=== PATIENT | female | born 1960 | race Caucasian/White ===

== ENCOUNTER 2019-06-02 09:05 | Outpatient (CLI) | payer OTHER, SELFPAY ==
[2019-06-02 09:20] LABS: Basophils Absolute Auto 0.03 K/mm3 (0.00-0.10); Basophils Percent Auto 0.4 % (0.0-1.0); Eosinophils Absolute Auto 0.24 K/mm3 (0.02-0.50); Eosinophils Percent Auto 2.9 % (1.0-6.0); Hematocrit 44.1 % (35.0-49.0); Hemoglobin 15.3 g/dL (12.0-15.0); Immature Granulocyte Absolute 0.03 K/mm3 (0.00-0.00); Immature Granulocyte Percent A 0.4 % (0.0-0.0); Lymphocytes Absolute Auto 2.46 K/mm3 (1.10-4.50); Lymphocytes Percent Auto 30.2 % (18.0-42.0); Mean Corpuscular HGB Conc 34.7 g/dL (32.0-36.0); Mean Corpuscular Hemoglobin 31.9 pg (27.0-31.0); Mean Corpuscular Volume 91.9 fL (78.0-102.0); Mean Platelet Volume 9.2 fl (9.2-11.8); Monocytes Absolute Auto 0.53 K/mm3 (0.10-0.90); Monocytes Percent Auto 6.5 % (2.0-11.0); Neutrophils Absolute Auto 4.9 K/mm3 (1.7-7.2); Neutrophils Percent Auto 59.6 % (50.0-70.0); Platelet Count Result 343 K/mm3 (150-420); Red Cell Distribution Width 12.7 % (11.6-14.4); White Blood Count 8.1 K/mm3 (4.8-10.8)
[2019-06-02 09:20] LABS: Add Urine Microscopic? YES; Appearance Urine Clear (Clear); Bilirubin Urine Negative (Negative); Blood Urine 1+ (Negative); Color Urine Yellow (Yellow); Glucose Urine UA Negative (Negative); Ketones Urine Negative (Negative); Leukocyte Esterase Ur 1+ (Negative); Nitrate Urine Negative (Negative); Protein Urine Negative (Negative); Specific Grav Ur 1.025 (1.010-1.020); Urobilinogen Urine 0.2 mg/dL (0.2-1.0)
[2019-06-02 09:27] LABS: RBC Urine 0-2 /hpf (0-2)
[2019-06-02 09:28] LABS: Bacteria Urine 1+ /hpf; Squamous Epithelial Cell Urine Few /hpf (Few); Transitional Epi Cells Urine Few /hpf; WBC Urine 0-3 /hpf (0-3)
[2019-06-02 09:34] LABS: Hemoglobin A1C 5.8 % (<5.7)
[2019-06-02 10:50] LABS: Anion Gap 13.4 mmol/L (7-16); Blood Urea Nitrogen 20 mg/dL (7-18); Calcium 9.5 mg/dL (8.5-10.1); Carbon Dioxide 30 mmol/L (21-32); Chloride 104 mmol/L (98-108); Estimated Glomerular Filt Rate 56; Free T4 Free Thyroxine 0.92 ng/dL (0.76-1.46); Glucose 104 mg/dL (70-99); Osmolality Calculated 298 mOsm/kg (285-295); Potassium 4.4 mmol/L (3.5-5.1); Sodium 143 mmol/L (136-145)
[2019-06-06 09:23] LABS: Vitamin D 25 Hydroxy 27 ng/mL (30-100)
== END 2019-06-02 09:06 | disposition home or self-care (01) ==
PROVIDERS: PCP Internal Medicine; Visit Provider Internal Medicine
DX: R73.01 Impaired fasting glucose (principal); I10 Essential (primary) hypertension; E55.9 Vitamin D deficiency, unspecified; Z00.00 Encounter for general adult medical examination without abnormal findings
CPT/HCPCS: 36415; 80048; 81001; 82306; 83036; 84439; 84443; 85025

== ENCOUNTER 2020-08-26 12:21 | Outpatient (CLI) | payer OTHER, SELFPAY ==
--- NOTE | ~2020-08-26 | MM_ITS ---
EXAMINATION: MM screening janelle BI w kaylene HISTORY: Screening mammogram, family history of breast cancer in her mother. TECHNIQUE: Craniocaudal and mediolateral oblique 3-D tomosynthesis images were obtained and synthetic 2-D images were generated. CAD analysis was submitted and interpreted. COMPARISON: 10/13/2018, 09/19/2017, 09/17/2016, 05/09/2015 BREAST PARENCHYMAL COMPOSITION: The breasts are heterogeneously dense, which may obscure small masses . FINDINGS: Bilateral obscured breast masses are seen which demonstrate decrease in size, consistent wi th benign findings. There is no evidence of suspicious mass, calcification, or architectural distorti on to suggest malignancy in either breast. There has been no suspicious interval change. IMPRESSION: 1. No mammographic evidence of malignancy. 2. Recommend routine screening mammography in one year. BI-RADS Category 2: Benign finding(s). Reviewed, dictated and finalized at location A.
== END 2020-08-26 12:22 | disposition home or self-care (01) ==
LOC: CHSIMG 12:23
PROVIDERS: PCP Internal Medicine; Visit Provider Obstetrics & Gynecology
DX: Z12.31 Encounter for screening mammogram for malignant neoplasm of breast (principal)
CPT/HCPCS: 77063; 77067

== ENCOUNTER 2021-10-01 11:57 | Outpatient (CLI) | payer OTHER, SELFPAY ==
--- NOTE | ~2021-10-01 | DEXA_ITS ---
Bone Density Report Name: GRACIE LEE Age: 61 Sex: Female Ethnicity: White Date of : 1960 Indication: postmenopausal; screening for osteoporosis; height loss; hysterectomy; Referring Provider: Rylan Sandoval Study: Bone densitometry was performed. Exam Date: October 01, 2021 Accession number: [id number] Bone Density: Region BMD T-score Z-score Classification AP Spine(L1-L4) 1.060 0.1 1.5 Normal Femoral Neck (Left) 0.727 -1.1 0.1 Osteopenia Total Hip (Left) 1.034 0.8 1.6 Normal Femoral Neck (Right) 0.816 -0.3 0.9 Normal Total Hip (Right) 1.029 0.7 1.6 Normal Femoral Neck Mean 0.771 -0.7 0.5 Normal Total Hip Mean 1.032 0.7 1.6 Normal World Health Organization criteria for BMD impression classify patients as: Normal (T-score at or above -1.0), Osteopenia (T-score between -1.0 and -2.5), or Osteoporosis (T-score at or below -2.5). 10-year Fracture Risk(1): Major Osteoporotic Fracture 6.5% Hip Fracture 0.4% Reported Risk Factors: [place] (), Neck BMD=0.727, BMI=34.0 (1) FRAX(R) Version 3.08. Fracture probability calculated for an untreated patient. Fracture probability may be lower if the patient has received treatment. Clinical Information Provided by Patient: Has used the following medications: Vitamin D, multi vitimain Has the following medical conditions: Hysterectomy Patient maximum height was 64 Menopause Age: 50 No regular weight bearing exercise Drinks caffeinated beverages Onset of menses at age 14 Number of children 2 Impression: The patient has low bone mass, based on the Left Femoral Neck T-score. Discussion: BONE DENSITY IS LOW AT ONE OR MORE SKELETAL SITES. This patient's lowest T-score is low at one or more skeletal sites. It meets the World Health Organization's (WHO) criteria for ?low bone mass? (T-score between -1.0 and -2.5). The patient's 10-year risk of fracture as calculated by FRAX is less than the threshold where pharmacological therapy is recommended by the National Osteoporosis Foundation (NOF). However, all treatment decisions require clinical judgment and consideration of individual patient factors, including patient preferences, comorbidities, previous drug use, risk factors not captured in the FRAX model (e.g., frailty, falls, vitamin D deficiency, increased bone turnover, interval significant decline in bone density) and possible under or overestimation of fracture risk by FRAX. The patient should follow a healthful lifestyle (good nutrition with adequate calcium and vitamin D, and appropriate weight-bearing exercise). Follow-Up: Consider repeating this study in 2 to 3 years to reassess this patient's status, or sooner if there is some new clinical indication. Reported by: Dr. Ryley Plata on
--- NOTE | ~2021-10-01 | MM_ITS ---
EXAMINATION: MM screening janelle BI w kaylene HISTORY: Screening TECHNIQUE: Craniocaudal and mediolateral oblique 3-D tomosynthesis images were obtained and synthetic 2-D images were generated. CAD analysis was submitted and interpreted. COMPARISON: Comparison to multiple prior studies sequentially, with oldest reviewed study dated 09/2014. BREAST PARENCHYMAL COMPOSITION: The breasts are heterogenously dense, which may obscure small masses FINDINGS: Bilateral breast masses have progressed slightly decreased in size, consistent with benign masses. There is no evidence of suspicious mass, calcification, or architectural distortion to sugges t malignancy in either breast. There has been no suspicious interval change. IMPRESSION: 1. No mammographic evidence of malignancy. 2. Recommend routine screening mammography in one year. BI-RADS Category 2: Benign finding(s). Reviewed, dictated and finalized at location A.
== END 2021-10-01 11:58 | disposition home or self-care (01) ==
LOC: CHSIMG 11:59
PROVIDERS: PCP Internal Medicine; Visit Provider Obstetrics & Gynecology
DX: Z78.0 Asymptomatic menopausal state (principal); Z12.31 Encounter for screening mammogram for malignant neoplasm of breast
CPT/HCPCS: 77063; 77067; 77080

== ENCOUNTER 2022-10-08 13:21 | Outpatient (CLI) | payer OTHER, SELFPAY ==
--- NOTE | ~2022-10-08 | MM_ITS ---
EXAMINATION: MM screening janelle BI w kaylene HISTORY: Screening mammogram TECHNIQUE: Craniocaudal and mediolateral oblique 3-D tomosynthesis images were obtained and synthetic 2-D images were generated. CAD analysis was submitted and interpreted. COMPARISON: 10/06/20152021, 08/26/2020 bilateral screening mammogram examinations BREAST PARENCHYMAL COMPOSITION: The breasts are heterogeneously dense, which may obscure small masses . FINDINGS: There are bilateral mammographic asymmetries and possible masses. Bilateral diagnostic mamm ography and breast ultrasound examination are recommended. IMPRESSION: 1. Bilateral mammographic asymmetries and possible breast masses 2. Bilateral diagnostic mammogram and breast ultrasound examination are recommended BI-RADS Category 0: Incomplete: Needs additional imaging evaluation. Reviewed, dictated and finalized at location A. IMPRESSION: 1. Bilateral mammographic asymmetries and possible breast masses 2. Bilateral diagnostic mammogram and breast ultrasound examination are recomme nded BI-RADS Category 0: Incomplete: Needs additional imaging evaluation.
== END 2022-10-08 13:22 | disposition home or self-care (01) ==
LOC: CHSIMG 13:23
PROVIDERS: PCP Internal Medicine; Visit Provider Obstetrics & Gynecology
DX: Z12.31 Encounter for screening mammogram for malignant neoplasm of breast (principal); R92.8 Other abnormal and inconclusive findings on diagnostic imaging of breast
CPT/HCPCS: 77063; 77067

== ENCOUNTER 2022-10-18 08:55 | Outpatient (CLI) | payer OTHER, SELFPAY ==
--- NOTE | ~2022-10-18 | MM_ITS ---
EXAMINATION: MM diagnostic janelle BI w kaylene HISTORY: Bilateral breast masses and asymmetries on screening mammogram TECHNIQUE: Additional 3-D tomosynthesis images of the breasts were performed and synthetic 2-D images were generated. CAD analysis was submitted and interpreted. COMPARISON: 10/08/2022, 10/01/2021, 08/26/2020, 09/19/2017 FINDINGS: There are bilateral, similar appearing, waxing and waning breast masses. No suspicious mass , calcification, or architectural distortion are identified. IMPRESSION: 1. No mammographic evidence of malignancy. 2. Recommend routine screening mammography in one year. BI-RADS Category 2: Benign finding(s). Reviewed, dictated and finalized at location A.
== END 2022-10-18 08:56 | disposition home or self-care (01) ==
LOC: CHSIMG 08:57
PROVIDERS: PCP Internal Medicine; Visit Provider Obstetrics & Gynecology
DX: R92.8 Other abnormal and inconclusive findings on diagnostic imaging of breast (principal)
CPT/HCPCS: 77062; 77066; G0279

== ENCOUNTER 2023-11-22 12:10 | Outpatient (CLI) | payer OTHER, SELFPAY ==
--- NOTE | ~2023-11-22 | MM_ITS ---
EXAMINATION: MM screening [facility] BI w kaylene HISTORY: Screening TECHNIQUE: Craniocaudal and mediolateral oblique 3-D tomosynthesis images were obtained and synthetic 2-D images were generated. CAD analysis was submitted and interpreted. COMPARISON: Comparison to multiple prior studies sequentially, with oldest reviewed study dated 05/2016. BREAST PARENCHYMAL COMPOSITION: Not dense: There are scattered areas of fibroglandular density. FINDINGS: There are multiple masses of both breasts which are partially obscured by fibroglandular co ntent. Most masses appear significantly decreased in size over time dating back to 09/17/2016. No reagan picious new calcifications, masses or architectural distortion are identified in either breast to sug gest malignancy. IMPRESSION: 1. No mammographic evidence of malignancy. 2. Recommend routine screening mammography in one year. BI-RADS Category 2: Benign finding(s). Reviewed, dictated and finalized at location B.
--- NOTE | ~2023-11-22 | DEXA_ITS ---
Bone Density Report Name: GRACIE LEE Age: 63 Sex: Female Ethnicity: White Date of : 1960 Indication: postmenopausal; screening for osteoporosis; height loss; hysterectomy; Referring Provider: PREETI IRBY Study: Bone densitometry was performed. Exam Date: November 22, 2023 Accession number: [id number] Bone Density: Region BMD T-score Z-score Classification AP Spine(L1-L4) 1.058 0.1 1.6 Normal Femoral Neck (Left) 0.819 -0.3 1.1 Normal Total Hip (Left) 1.080 1.1 2.1 Normal Femoral Neck (Right) 0.853 0.0 1.4 Normal Total Hip (Right) 1.056 0.9 1.9 Normal Femoral Neck Mean 0.836 -0.1 1.2 Normal Total Hip Mean 1.068 1.0 2.0 Normal World Health Organization criteria for BMD impression classify patients as: Normal (T-score at or above -1.0), Osteopenia (T-score between -1.0 and -2.5), or Osteoporosis (T-score at or below -2.5). 10-year Fracture Risk: FRAX not reported because: All T-scores for Spine Total, Hip Total, Femoral Neck at or above -1.0 Previous Exams: Region Exam Age BMD T-score BMD Change BMD Change Date g/cm2 vs Baseline vs Previous AP Spine (L1-L4) 11/22/2023 63 1.058 0.1 -0.001 (-0.1%) -0.001 (-0.1%) 10/01/2021 61 1.060 0.1 Total Hip(Left) 11/22/2023 63 1.080 1.1 0.045 (4.4%)# 0.045 (4.4%)# 10/01/2021 61 1.034 0.8 Total Hip(Right) 11/22/2023 63 1.056 0.9 0.027 (2.6%)# 0.027 (2.6%)# 10/01/2021 61 1.029 0.7 *Denotes significance at 95% confidence level, LSC for AP Spine = 0.022 g/cm2, LSC for Total Hip = 0.027 g/cm2 # Denotes dissimilar scan types or analysis methods Clinical Information Provided by Patient: Has used the following medications: Vitamin D, multi vitimain Has the following medical conditions: Hysterectomy Patient maximum height was 64 Menopause Age: 52 No regular weight bearing exercise Drinks caffeinated beverages Onset of menses at age 14 Number of children 2 Impression: The patient has normal bone mass. No significant bone loss was observed. Discussion: BONE DENSITY IS ABOVE THE MINIMUM DESIRABLE LEVEL AT ALL SKELETAL SITES TESTED. This patient?s bone mineral density is above the minimum desirable level (T-score -1.0 or better) at all sites measured. The patient should follow a healthful lifestyle (good nutrition with adequate calcium and vitamin D, and appropriate weight-bearing exercise). Follow-Up: Consider repeating this
== END 2023-11-22 12:11 | disposition home or self-care (01) ==
LOC: CHSIMG 12:12
PROVIDERS: PCP Internal Medicine; Visit Provider Nurse Practitioner Obstetrics & Gynecology
DX: Z12.31 Encounter for screening mammogram for malignant neoplasm of breast (principal); Z78.0 Asymptomatic menopausal state
CPT/HCPCS: 77063; 77067; 77080

== ENCOUNTER 2024-04-14 07:55 | Outpatient (CLI) | payer OTHER, SELFPAY ==
[2024-04-14 08:18] LABS: Basophils Absolute Auto 0.07 K/mm3 (0.00-0.10); Basophils Percent Auto 0.8 % (0.0-1.0); Eosinophils Absolute Auto 0.24 K/mm3 (0.02-0.50); Eosinophils Percent Auto 2.9 % (1.0-6.0); Hematocrit 43.5 % (35.0-49.0); Hemoglobin 14.8 g/dL (12.0-15.0); Immature Granulocyte Absolute 0.04 K/mm3 (0.00-0.00); Immature Granulocyte Percent A 0.5 % (0.0-0.0); Lymphocytes Absolute Auto 2.22 K/mm3 (1.10-4.50); Lymphocytes Percent Auto 26.7 % (18.0-42.0); Mean Corpuscular Hemoglobin 31.2 pg (27.0-31.0); Mean Corpuscular Volume 91.8 fL (78.0-102.0); Monocytes Absolute Auto 0.45 K/mm3 (0.10-0.90); Monocytes Percent Auto 5.4 % (2.0-11.0); Neutrophils Absolute Auto 5.31 K/mm3 (1.70-7.20); Neutrophils Percent Auto 63.7 % (50.0-70.0); Platelet Count Result 344 K/mm3 (150-420); Red Blood Count 4.74 M/mm3 (4.20-5.40); Red Cell Distribution Width 12.3 % (11.6-14.4); White Blood Count 8.3 K/mm3 (4.8-10.8)
[2024-04-14 08:30] LABS: Hemoglobin A1C 5.5 % (<5.7)
[2024-04-14 08:55] LABS: Thyroid Stimulating Hormone Reflex 0.96 u/IU/mL (0.36-3.74)
[2024-04-14 09:13] LABS: Alanine Aminotransferase 27 U/L (14-59); Albumin Level 3.8 g/dL (3.4-5.0); Alkaline Phosphatase 110 U/L (46-116); Anion Gap 9 mmol/L (4-12); Aspartate Amino Transferase 12 U/L (15-37); Bilirubin,Total 0.4 mg/dL (0.00-1.00); Blood Urea Nitrogen 13 mg/dL (7-18); Calcium 8.9 mg/dL (8.5-10.1); Carbon Dioxide 28 mmol/L (21-32); Chloride 106 mmol/L (98-108); Cholesterol 204 mg/dL (0-200); Estimated Glomerular Filt Rate 59; Glucose 121 mg/dL (70-99); HDL Direct 56 mg/dL (40-60); LDL Cholesterol Calculated 126 mg/dL (<130); Osmolality Calculated 297 mOsm/kg (285-295); Potassium 4.4 mmol/L (3.5-5.1); Sodium 143 mmol/L (136-145); Total Protein 6.6 g/dL (6.4-8.2); Triglycerides 109 mg/dL (0-150)
[2024-04-16 14:09] LABS: Vitamin D 25 Hydroxy 23 ng/mL (30-100)
== END 2024-04-14 07:56 | disposition home or self-care (01) ==
LOC: CHSLAB 07:56
PROVIDERS: PCP Nurse Practitioner Family; Visit Provider Nurse Practitioner Family
DX: Z00.00 Encounter for general adult medical examination without abnormal findings (principal); E55.9 Vitamin D deficiency, unspecified
CPT/HCPCS: 36415; 80053; 80061; 82306; 83036; 84443; 85025

== ENCOUNTER 2024-05-02 16:06 | Outpatient (CLI) | payer OTHER, SELFPAY ==
--- NOTE | ~2024-05-02 | XR_ITS ---
XR foot LT min 3V Ordering provider: See Wetzel DPM History: . Bunion on R L Clovere . Comparison: None. FINDINGS: BONES: No acute fracture or dislocation. , Is seen in the meningeal toe. Mild hallux valgus cannot be excluded. JOINT SPACES: Normal. No tarsal coalition. SOFT TISSUES: Normal. Calcaneus spur. IMPRESSION: No acute osseous abnormality left foot. Reviewed, dictated and finalized at location A. GATION SUPPORT ANALYST
--- NOTE | ~2024-05-02 | XR_ITS ---
XR foot RT min 3V Ordering provider: See Wetzel DPM History: . Bunion on R Daniel Tatum . Comparison: None. FINDINGS: BONES: No acute fracture or dislocation. Calcaneal spur. JOINT SPACES: Normal. No tarsal coalition. SOFT TISSUES: Normal. IMPRESSION: No acute osseous abnormality of the right foot. Reviewed, dictated and finalized at location A. HOUSE DRIVER
== END 2024-05-02 16:07 | disposition home or self-care (01) ==
PROVIDERS: PCP Nurse Practitioner Family; Visit Provider Podiatrist Foot & Ankle Surgery
DX: M21.611 Bunion of right foot (principal); M21.612 Bunion of left foot
CPT/HCPCS: 73630

== ENCOUNTER 2024-07-03 11:46 | Outpatient (CLI) | payer OTHER, SELFPAY ==
--- NOTE | ~2024-07-03 | XR_ITS ---
Left foot Technique: AP, oblique, and lateral views were obtained. Clinical History: Postoperative COMPARISON: 05/02/2024 Findings: Status post percutaneous orthopedic pinning of the second and third toes, with pins transfi ramiro the distal and proximal interphalangeal joints of these digits. Orthopedic screw also present tr ansfixing a first metatarsal osteotomy.. Joint spaces are preserved without erosive or degenerative c hange. Soft tissues are unremarkable. Impression: Postoperative changes, as detailed above. Reviewed, dictated and finalized at location M. Impression: Postoperative changes, as detailed above.
--- OUTSIDE RECORDS SUMMARY | 2024-07-03 13:23 | XMS_ITS | Patient Health Record ---
Author Organization [facility] Address [address] [place], [place] [id number] Care Team Providers Care Business Programmer Name Role Phone JORGE ALBERTO LANDEROS Unavailable [phone] Ephraim Pimentel Unavailable Unavailable VINNY SHIRLEY Unavailable [phone] Allergies No Known Allergies Reason For Referral No Information Medications Medication SIG (Take, Route, Frequency, Duration) Notes Start Date End Date Status HYDROcodone-Acetaminophen 5-325 MG 1 tablet as needed Orally every 4-6 hrs 06/14/2024 Active Multivitamin - 1 tablet Orally Once a day Active Vitamin B 12 100 MCG as directed Orally Active Vitamin D 50 MCG (1999) 1 tablet Oral ly Once a day Active Vital Signs Height-cm 160.02 cm 12/15/2023 Height 63 in 12/15/2023 Encounters Encounter Location Date Provider Diagnosis [facility] [address] [place], [place] [id number] 06/15/2024 JORGE ALBERTO LANDEROS [facility] [address] [place], [place] [id number] 06/21/2024 JORGE ALBERTO LANDEROS Hallux valgus (acquired), left foot M20.12 ; Other hammer toe(s) (acquired), left foot M20.42 and Encounter for other specified surgical aftercare Z48.89 [facility] [address] [place], [place] [id number] 12/15/2023 VINNY SHIRLEY Unspecified atherosclerosis of [place] arteries of extremities, bilateral legs I70.203 ; Other hammer toe(s) (acquired), right foot M20.41 ; Other hammer toe(s) (acquired), left foot M20.42 ; Hallux valgus (acquired), right foot M20.11 and Hallux valgus (acquired), left foot M20.12 [facility] [address] [place], [place] [id number] 05/03/2024 JORGE ALBERTO LANDEROS Hallux valgus (acquired), left foot M20.12 ; Other hammer toe(s) (acquired), left foot M20.42 and Left foot pain M79.672 [facility] [place] [address] [facility] [address] [place] [id number] 06/14/2024 JORGE ALBERTO LANDEROS Assessments Encounter Date Diagnosis (ICD Code) Assessment Notes Treatment Notes Treatment Clinical Notes Section Notes 12/15/2023 Unspecified atherosclerosis of [place] arteries of extremities, bilateral legs (ICD-10 - I70.203) Patient educated on risks and aggravating factors of PVD, including conservative treatment options such as a diet and exercise regimen to aid in slowing progression of vascular disease 12/15/2023 Other hammer toe(s) (acquired), right foot (ICD-10 - M20.41) The patient was educated regarding how to mechanically stabilize their deformity. The patient was given education about shoe recommendations specific for the condition. The patient was educated about custom orthotics and how appropriate shoes and orthotics can prevent further worsening of the deformity. The patient was educated about how bad shoe habits can worsen the condition. NSAIDS, P.T., injections and other conservative treatments were discussed. Both surgical and non surgical treatments were discussed, but conservative options were emphasized. 05/03/2024 Hallux valgus (acquired), left foot (ICD-10 - M20.12) Bunion: Discussed various treatments with the patient regarding hallux abducto valgus deformity. Discussed conservative care consisting of padding, wider shoes, anti-inflammatorie s, and orthotics. Discussed surgical treatment options and answered all questions about the intra-operative and post-operative treatment course. 05/03/2024 Other hammer toe(s) (acquired), left foot (ICD-10 - M20.42) Hammertoe Deformity: Discussed various treatments for hammer toes with the patient . Discussed conservative care consisting of padding, wider shoes, anti-inflammatorie s, and orthotics. Discussed surgical treatment options and answered all questions about the intra-operative and post-operative treatment course. 06/21/2024 Hallux valgus (acquired), left foot (ICD-10 - M20.12) 06/21/2024 Other hammer toe(s) (acquired), left foot (ICD-10 - M20.42) 06/21/2024 Encounter for other specified surgical aftercare (ICD-10 - Z48.89) 05/03/2024 Left foot pain (ICD-10 - M79.672) 12/15/2023 Other hammer toe(s) (acquired), left foot (ICD-10 - M20.42) 12/15/2023 Hallux valgus (acquired), right foot (ICD-10 - M20.11) 12/15/2023 Hallux valgus (acquired), left foot (ICD-10 - M20.12) Discussed bunion deformity to left foot. Discussed appropriate shoe gear as well as medical grade orthotics to prevent the progression of the deformity. Discussed joint mobilization techniques. Surgical intervention is not warranted at this time. 06/21/2024 Other Dressing Change: The old dressing was removed. Utilizing aseptic technique, a new sterile compression dressing was applied. Patient was instructed to keep it dry and not remove it. Continue post-operative restrictions. Keep foot and dressing dry. Wear surgical shoe at all times when bearing weight. Decrease activity. Order: Xrays 3 views of the left foot at [facility] 05/03/2024 Other Surgical Consent The patient understands there are no guarantees. There is a chance of: 1. Infection 2. Failure or rejection of implant 3. Overcorrection 4. Undercorrection 5. Non resolution of the problem 6. Transfer lesions to adjacent metatarsals 7. Return of the problem 8. Numbness 9. Anesthetic reaction 10. Healing problems or blood clot 11. Additional or revisional surgery may be required if complications occur The patient had no further question and has agreed to undergo surgical correction of the admitting diagnosis. Patient has signed the written consent form at this time. Proposed procedures: Kvng bunionectomy with hardware of the left foot, hammertoe correction of left 2nd digit with hardware, hammertoe correction of the left 3rd digit with hardware. Plan Of Treatment Next Appt Details Provider Name:JORGE ALBERTO LANDEROS, 11:20:00 AM, [address] [place] [address], [phone], Insurance Providers Payer Name Payer Address Payer Phone Subscriber Number Group Number Insured Name Patient Relationship to Insured Coverage Start Date Coverage End Date [employer] [facility] [address] [address] [place], [place] [id number] GRACIE LEE Self - patient is the insured
--- OUTSIDE RECORDS SUMMARY | 2024-07-03 13:23 | XMS_ITS ---
Author Organization [facility] Address [address] [place], [place] [id number] Care Team Providers Care Core Shaper Name Role Phone JORGE ALBERTO LANDEROS Unavailable [phone] Ephraim Pimentel Unavailable Unavailable Medications Medication SIG (Take, Route, Frequency, Duration) Notes Start Date End Date Status HYDROcodone-Acetaminophen 5-325 MG 1 tablet as needed Orally every 4-6 hrs 06/14/2024 Active Encounters Encounter Location Date Provider Diagnosis [facility] [address] [facility] [address] [place], [place] [phone] 06/14/2024 JORGE ALBERTO LANDEROS Plan Of Treatment Medication Medication Name Sig Start Date Stop Date Notes HYDROcodone-Acetaminophen 5- 325 MG 1 tablet as needed Orally every 4-6 hrs 06/14/2024 Next Appt Details Provider Name:JORGE ALBERTO LANDEROS, 11:20:00 AM, [address] [place] [address], [phone], Progress Notes * CELINA LEEHDOB: [birth year] (63 yo F)Acc No.[id number]:06/14/2024 Patient: Stephanie MACKGILMER GRACIE :1960 A ge:63 Y S ex:Female Address: [place], [address] * Refills Start HYDROcodone-Acetaminophen Tablet, 5-325 MG, Orally, 30, 1 tablet as needed, every 4-6 hrs, Refills=0 * true * Date: Generated for Edvin crystal/Silvia/Michela on: 0 07/03/2024 01:23 PM CDT
--- OUTSIDE RECORDS SUMMARY | 2024-07-03 13:23 | XMS_ITS | Clinical Summary ---
Author Organization [facility] Address [address] [place] [address] Care Team Providers Care Experimental Technician Name Role Phone David Philippe PA Primary Care Provider [phone] Allergies No known active allergies Medications Vitamin D3 (VITAMIN D) 50 mcg tablet Take 1 tablet (50 mcg total) by mouth daily. Active Cyanocobalamin (B-12) 50 MCG Tab Take 1 tablet by mouth daily. Active Multiple Vitamin (MULTIVITAMIN ADULT OR) Take 1 tablet by mouth daily. Active aspirin 81 MG chewable tablet Chew 1 tablet (81 mg total) by mouth daily. Active lisinopril (PRINIVIL) 10 MG tablet Take 1 tablet (10 mg total) by mouth daily. Started 06/11/24 for 1 week then increase to 20 MG Active HYDROcodone-lisbeth taminophen (NORCO) 5-325 MG tablet Take 1 tablet by mouth every 4 (four) hours as needed. 06/14/2024 Active Active Problems No known active problems Encounters Date Type Department Care Team Description 06/15/2024 10:23 AM STRATEGY ANALYST Anesthesia [place] [address] Jatin Parish MD Jackson, Samantha Rae, FNP 06/15/2024 9:13 AM STRATEGY ANALYST - 06/15/2024 10:56 AM STRATEGY ANALYST Surgery [place] [address] See Wetzel DPM [place] BUNIONECTOMY WITH HARDWARE LEFT FOOT/ ARTHROPLASTY 2ND AND 3RD TOES WITH HARDWARE LEFT FOOT 06/15/2024 5:25 AM STRATEGY ANALYST - 06/15/2024 1:40 PM STRATEGY ANALYST Hospital Encounter [facility] [place] [address] [place], See, DPM Discharge Disposition: Home or Self Care (Routine Discharge) 06/15/2024 Travel 06/08/2024 Travel from Last 3 Months Social History Tobacco Use Types Packs/Day Years Used Date Smoking Tobacco: Never Smokeless Tobacco: Never Tobacco Cessation:Counseling Given: Not Answered Alcohol Use Standard Drinks/Week Comments Yes 0 (1 standard drink = 0.6 oz pur e alcohol) social Comments No Sex and Gender Information Value Date Recorded Sex Assigned at Female 06/15/2024 5:22 AM STRATEGY ANALYST Legal Sex Female 10:51 AM STRATEGY ANALYST Gender Identity Not on file Sexual Orientation Not on file Last Filed Vital Signs Vital Sign Reading Time Taken Comments Blood Pressure 130/85 06/15/2024 1:15 PM STRATEGY ANALYST Pulse 64 06/15/2024 1:15 PM STRATEGY ANALYST Temperature 35.9 C (96.6 F) 06/15/2024 1:15 PM STRATEGY ANALYST Respiratory Rate 16 06/15/2024 1:15 PM STRATEGY ANALYST Oxygen Saturation 98% 06/15/2024 1:15 PM STRATEGY ANALYST Inhaled Oxygen Concentration - - Weight 89.2 kg (196 lb 10.4 oz) 06/15/2024 6:30 AM STRATEGY ANALYST Height 160 cm (5' 3 ) 06/15/2024 6:30 AM STRATEGY ANALYST Body Mass Index 34.84 06/15/2024 6:30 AM STRATEGY ANALYST Plan of Treatment Health Maintenance Due Date Last Done Comments Colorectal Cancer Screening Colonoscopy (10 Years) 1962 Annual Physical 1965 Hepatitis C 1980 Mammogram Screening 2002 Zoster Vaccines (1 of 2) 2012 COVID-19 Vaccine (2 - 2023-2 5 season) 2023 11/05/2020 DTaP, Tdap and Td Vaccines ( 3 - Td or Tdap) 01/13/2034 01/14/2024, 11/21/2012 RSV Immunization or 60+ Years (1 - 1-dose 75+ series) 2037 Influenza Adult Completed 01/17/2024 Meningococcal B Vaccine Aged Out No l onger eligible based on patient's age to complete this topic Meningococcal Vaccine Aged Out No babs stan eligible based on patient's age to complete this topic Pneumococcal Vaccine: Pediatrics (0 to 5 Years) and At-Risk Patients (6 to 64 Years) Aged Out No longer eligible b ased on patient's age to complete this topic RSV Immunizations Under 20 Months Aged Out No longer eligible b ased on patient's age to complete this topic Medical Devices Implanted Type Area Government Clerk Device Identifier Shelf Expiration Date Model / Serial / Lot 3.8 Counter Sink Implanted:Qty : 1 on 06/15/2024 by See Wetzel DPM at [facility] Screw Left: Foot [employer] [id number] / / 3.0x16 Mm Asnis Screw Implanted:Qty : 1 on 06/15/2024 by See Wetzel DPM at [facility] Screw Left: Foot [employer] [id number] / / Toetac Xpress Implanted:Qty : 2 on 06/15/2024 by See Wetzel DPM at [facility] Left: Foot [employer] [id number] 02/14/2027 -[id number] / / [id number] Explanted Type Area Government Clerk Device Identifier Shelf Expiration Date Model / Serial / Lot 1.2 K-Wire Explanted:Qty: 1 on 06/15/2024 by See Wetzel DPM at [facility] Wire Left: Foot [employer] [id number] / / Procedures Procedure Name Priority Date/Time Associated Diagnosis Comments CORRECT BUNION,METATARSAL OSTEOTOMY 06/15/2024 10:23 AM STRATEGY ANALYST HALLUX VALGUS Case Notes SCHED BY FAX ON 05/09/24 MAURI PHONE ASSESS Special Needs ALEXA ASNIS MICRO SCREW/ TOE TACS from Last [address] [facility] Care Teams Experimental Technician Relationship Specialty Start Date End Date David Philippe FNP [address] [place] [phone] PCP - General Nurse Practitioner Family 06/08/24
--- OUTSIDE RECORDS SUMMARY | 2024-07-03 13:23 | XMS_ITS ---
Author Organization [facility] Address [address] [place], [place] [id number] Care Team Providers Care Channeling Machine Operator Name Role Phone JORGE ALBERTO LANDEROS Unavailable [phone] Ephraim Pimentel Unavailable Unavailable REASON FOR VISIT [facility] SURGERY Encounters Encounter Location Date Provider Diagnosis [address] [phone] 06/15/2024 JORGE ALBERTO LANDEROS Plan Of Treatment Next Appt Details Provider Name:JROGE ALBERTOCORINNE RODRÍGUEZBALJessica, 11:20:00 AM, [address] [place] [address], [phone], Progress Notes * CELINA LEEHDOB: [birth year] (63 yo F)Acc No.[id number]:06/15/2024 Patient: Stephanie GRACIE ORTIZ Provider: Thierry Landeros DPM :1960 A ge:63 Y S ex:Female Date:06/15/2024 Address: [facility] [place], [place] * Billing Information: * Visit Code: * Procedure Codes: * Electronic signature of JORGE ALBERTO LANDEROS DPM on 07/03/2024 at 01:23 PM CDT Sign off status: Pending * Provider: Thierry Landeros DPM Date: 0 06/15/2024 Generated for Edvin crystal/Silvia/Michela on: 0 07/03/2024 01:23 PM CDT
--- OUTSIDE RECORDS SUMMARY | 2024-07-03 13:24 | XMS_ITS | Referral Summary ---
Author Organization [facility] Address [address] [place] [address] Care Team Providers Care Radiation Therapy Technician Name Role Phone Aura Nelson MD Primary Care Provider [phone] Allergies No known active allergies Medications lisinopril-hydr oCHLOROthiazide (ZESTORETIC) 10-12.5 mg per tablet Take 1 tablet by mouth nightly 05/21/2019 Active cholecalciferol (VITAMIN D-3) 2000 unit capsule Take 1 capsule (2,000 Units total) by mouth nightly Active multivitamin capsule Take 1 capsule by mouth daily Active oxyCODONE (ROXICODONE) 5 mg immediate release tabletIndicatio ns:Pain Take 1 tablet (5 mg total) by mouth every 4 (four) hours as needed for pain 15 tablet 08/28/2020 Active polyethylene glycol (MIRALAX) 17 gram packetIndicatio ns:constipation Take 1 packet (17 g total) by mouth daily 30 each 08/28/2020 Active polyethylene glycol (MIRALAX) 17 gram packetIndicatio ns:constipation Take 1 packet (17 g total) by mouth daily 30 packet 11 02/14/2023 Active Active Problems Problem Noted Date Diagnosed Date History of colonic polyps 02/14/2023 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 Overview (07/23/2020): Added automatically from request for surgery [id number] Stress incontinence 07/23/2020 Overview (08/13/2020): Added automatically from request for surgery [id number] Colon cancer screening 01/15/2020 Overview (02/29/2020): Added automatically from request for surgery [id number] 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 AUDIT-C Answer Date Recorded Q1: How often do you have a drink containing alc ohol? Never 04/01/2023 Average Number of Drinks Not on file 023 Frequency of Binge Drinking Not on file 03/18 Personal Safety Answer Date Recorded Have you ever been in or are you currently in a harmful physical or emotional relationship or is someone making you feel afraid or unsafe? Denies 04/01/2023 Comments No Sex and Gender Information Value Date Recorded Sex Assigned at Not on file Legal Sex Female 2:55 AM CORPORATE REPRESENTATIVE Gender Identity Not on file Sexual Orientation Not on file Last Filed Vital Signs Vital Sign Reading Time Taken Comments Blood Pressure 156/90 04/01/2023 2:25 PM CORPORATE REPRESENTATIVE Pulse 67 04/01/2023 2:25 PM CORPORATE REPRESENTATIVE Temperature 36.3 C (97.3 F) 04/01/2023 2:10 PM CORPORATE REPRESENTATIVE Respiratory Rate 25 04/01/2023 2:25 PM CORPORATE REPRESENTATIVE Oxygen Saturation 100% 04/01/2023 2:25 PM CORPORATE REPRESENTATIVE Inhaled Oxygen Concentration - - Weight 83.9 kg (185 lb) 04/01/2023 11:42 AM CORPORATE REPRESENTATIVE Height 160 cm (5' 3 ) 04/01/2023 11:42 AM CORPORATE REPRESENTATIVE Body Mass Index 32.77 04/01/2023 11:42 AM CORPORATE REPRESENTATIVE Plan of Treatment Not on file Medical Devices Implanted Type Area Stamp Analyst Device Identifier Shelf Expiration Date Model / Serial / Lot [employer] [id number] [id number] Solyx Advantage 9cm Incision Sling Delivery Device Mesh - [id number] Implanted:Qty: 1 on 08/28/2020 by Yamileth Gil MD at [facility] N/A: Urethra [employer] [facility] 12/05/2022 [id number] / / [id number] Description:Suburethral impl ant Procedures Procedure Name Priority Date/Time Associated Diagnosis Comments COLONOSCOPY 04/01/2023 1:16 PM CORPORATE REPRESENTATIVE from Last 3 Months or Most Recently Relevant to Health Maintenance Results * COLONOSCOPY (04/01/2023 1:16 PM CORPORATE REPRESENTATIVE) Anatomical Region Laterality Modality Other Narrative Procedure Note Marek Mack MD - 04/01/2023 1:16 PM CST ENDOSCOPY LAB Patient Name: Lulu Torres Procedure Date: 04/01/2023 1:16 PM Date of : 1960 Admit Type: Outpatient Age: 62 Gender: Female Attending MD: Marek Mack M.D. 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 Last colonoscopy 02/2022 with one 2 mm polyp (colonic mucosa) - BBPS 6. Providers: Marek Mack M.D. Referring MD: Yuan Whitten M.D., Aura Nelson MD Medicines: Monitored Anesthesia Care Complications: No immediate complications. Estimated Blood Loss: Estimated blood loss: none. Procedure: Pre-Anesthesia Assessment: - Prior to the procedure, a History and Physicalwas performed, and patient medications, allergies and sensitivities were reviewed. The patient'stolerance of previous anesthesia was reviewed. - The risks and benefits of the procedure and the sedation options and risks were discussed with the patient. All questions were answered and informed consent was obtained. - Immediately prior to administration ofmedications, the patient was re-assessed for adequacy to receive sedatives. The benefits, risks and alternatives of theprocedure and sedation were discussed and informed consentwas obtained. All questions were answered. Please referto the signed informed consent document in the medical record. The scope was passed under direct vision.The [id number] was introduced through the anusand advanced to the terminal ileum, with identificationof the appendiceal orifice and IC valve. Thecolonoscopy was performed without difficulty. The patient tolerated the procedure well. The quality of thebowel preparation was evaluated using the BBPS (BostonBowel Preparation Scale) with scores of: Right Colon = 3, Transverse Colon = 3 and Left Colon = 3 (entiremucosa seen well with no residual staining, smallfragments of stool or opaque liquid). The total BBPS score equals 9. Findings: The perianal and digital rectal examinations were normal. The terminal ileum appeared normal. Many small-mouthed diverticula were found in the sigmoid colon and descending colon. One inverted diverticulum with superficialerosion. Non-bleeding external hemorrhoids were found during retroflexion. The hemorrhoids were medium-sized. Retroflexion in the right colon was performed. Impression: - The examined portion of the ileum was normal. - Diverticulosis in the sigmoid colon and in the descending colon. One inverted diverticulum with superficial erosion likely related to bowel prep. - Non-bleeding external hemorrhoids. - No specimens collected. Recommendation: - Return patient to [facility] for [facility]. - Resume previous diet. - Continue present medications. - Repeat colonoscopy for screening purposesMSH6-Skinner Syndrome in 2 years. - Consider repeat upper endoscopy for screening purposes. This can coordinated with primary care provider. - Return to primary care provider. - In the unusual situation that you developabdominal pain, bleeding or other significant problems in the days following this procedure please call my office [phone]). After hours and eveningsplease call [phone] and speak to the GI fellow idalia. Please tell the fellow that Dr. Mack didyour procedure and that you were instructed to have the fellow call me or the physician covering for me to discuss the management of your condition. If youhave an urgent problem, please go to the nearestemergency room and have the ER doctor call my office duringthe day or the GI fellow after hours and weekends to arrange admission or transfer to our facility.Please bring this report with you if you go to theemergency room. Attending Participation: I was present and participated during the entire procedure, including non-stern portions. Electronically signed by Marek Mack MD Marek Mack M.D. 04/01/2023 2:01:57 PM Number of Addenda: 0 Note Initiated On: 04/01/2023 1:16 PM Marek Mack MD ENDOSCOPY PROCED URES Final Result from Last 3 Months or Most Recently Relevant to Health Maintenance Insurance [facility] [address] [facility] [address] Advance Directives For more information, please contact: [phone] * Full Code (Latest Code Status on File) Date Activated Date Inactivated Comments 03/02/2022 8:33 AM 03/02/2022 3:05 PM * Full Code Date Activated Date Inactivated Comments 08/28/2020 1:49 PM 08/28/2020 7:42 PM * Full Code Date Activated Date Inactivated Comments 03/03/2020 9:28 AM 03/03/2020 3:41 PM Care Teams Radiation Therapy Technician Relationship Specialty Start Date End Date Aura Nelson MD [address] [place] [address] PCP - General Internal Medicine 05/31/19
--- OUTSIDE RECORDS SUMMARY | 2024-07-03 13:24 | XMS_ITS ---
Author Organization [facility] Address [address] [place], [place] [address] Care Team Providers Care Human Resources Officer Name Role Phone TIGRE JORGE ALBERTO Unavailable [phone] Ephraim Pimentel Unavailable Unavailable REASON FOR VISIT The patient returns 1 week s/p Kvng bunionectomy and 2nd and 3rd hammertoe repair. She has taken half of her pain medication and it is getting less painful now Medications Medication SIG (Take, Route, Frequency, Duration) Notes Start Date End Date Status HYDROcodone-Acetaminophen 5-325 MG 1 tablet as needed Orally every 4-6 hrs 06/14/2024 Active Multivitamin - 1 tablet Orally Once a day Active Vitamin B 12 100 MCG as directed Orally Active Vitamin D 50 MCG (1999 UT) 1 tablet Oral ly Once a day Active Encounters Encounter Location Date Provider Diagnosis [address] [id number] 06/21/2024 JORGE ALBERTO LANDEROS Hallux valgus (acquired), left foot M20.12 ; Other hammer toe(s) (acquired), left foot M20.42 and Encounter for other specified surgical aftercare Z48.89 Assessments Encounter Date Diagnosis (ICD Code) Assessment Notes Treatment Notes Treatment Clinical Notes Section Notes 06/21/2024 Hallux valgus (acquired), left foot (ICD-10 - M20.12) 06/21/2024 Other hammer toe(s) (acquired), left foot (ICD-10 - M20.42) 06/21/2024 Encounter for other specified surgical aftercare (ICD-10 - Z48.89) 06/21/2024 Other Dressing Change: The old dressing was removed. Utilizing aseptic technique, a new sterile compression dressing was applied. Patient was instructed to keep it dry and not remove it. Continue post-operative restrictions. Keep foot and dressing dry. Wear surgical shoe at all times when bearing weight. Decrease activity. Order: Xrays 3 views of the left foot at [facility] Plan Of Treatment Treatment Notes Assessment Notes Other Dressing Change: The old dressing was removed. Utilizing aseptic technique, a new sterile compression dressing was applied. Patient was instructed to keep it dry and not remove it. Continue post-operative restrictions. Keep foot and dressing dry. Wear surgical shoe at all times when bearing weight. Decrease activity. Order: Xrays 3 views of the left foot at [facility] Next Appt Details Provider Name:JORGE ALBERTO LANDEROS, 11:20:00 AM, [address] [place] [address], [phone], Progress Notes * DAVID LEEOB: [birth year] (63 yo F)Acc No.[id number]:06/21/2024 Patient: GRACIE LAZAR Provider: Thierry Landeros DPM :1960 A ge:63 Y S ex:Female Date:06/21/2024 Address[facility] Subjective: * Chief Complaints: * 1 . The patient returns 1 week s/p Kvng bunionectomy and 2nd and 3rd hammertoe repair. She has taken half of her pain medication and it is getting less painful now. * HPI: H PI: Follow Up Visit P atient presents for follow-up visit for left foot post op. Patient states that she is doing ok, she is not having any pain with the k-wires. She states that she has been cautious with the foot and has not bumped it. She states that her left 4th and 5th digit have been sore due to being compressed against each other in the wrapping. , MA: agustina. * Medical History: * Medications: T aking Vitamin D 50 MCG (2000 UT) Tablet 1 tablet Orally Once a day , Taking Vitamin B 12 100 MCG Lozenge as directed Orally , Taking Multivitamin - Tablet 1 tablet Orally Once a day , Taking HYDROcodone-Acetaminophen 5-325 MG Tablet 1 tablet as needed Orally every 4-6 hrs , Medication List reviewed and reconciled with the patient Objective: * Vitals: * Examination: D ermatologic: Skin findings: T he dressing is clean and dry. Sutures are in place. No erythema, calor, active drainage, or dehiscence noted. V ascular: Post Op E richard is consistent for post-operative treatment course. N eurologic: Gross sensation G ross sensation is intact to light touch.? M usculoskeletal: Post Op N o calf pain noted. Assessment: * Assessment: 1. H allux valgus (acquired), left foot - M20.12 (Primary) 2 . O ther hammer toe(s) (acquired), left foot - M20.42 3 . E ncounter for other specified surgical aftercare - Z48.89 Plan: * Treatment: * Procedure Codes: 9 9024 POSTOP FOLLOW-UP VISIT * Billing Information: * Visit Code: * Procedure Codes: 03988 POSTOP FOLLOW-UP VISIT. * Electronic signature of JORGE ALBERTO LANDEROS DPM on 07/03/2024 at 01:23 PM CDT Sign off status: Pending * Provider: Thierry Landeros DPM Date: 06/21/2024 Generated for Edvin crystal/Silvia/Kemitting on: 07/03/2024 01:23 PM CDT History and Physical Notes * HPI (History of Present Illness) Category Sub-Category Detail Notes Category Not es HPI Follow Up Visit Patient presents for follow-up visit for left foot post op. Patient states that she is doing ok, she is not having any pain with the k-wires. She states that she has been cautious with the foot and has not bumped it. She states that her left 4th and 5th digit have been sore due to being compressed against each other in the wrapping. , MA: mca Examination Category Sub-Category Detail Notes Category Not es Dermatologic Skin findings: The dressing is clean and dry. Sutures are in place. No erythema, calor, active drainage, or dehiscence noted Neurologic Gross sensation Gross sensation is intact to light touch Vascular Post Op Edema is consist ent for post-operative treatment course Musculoskeletal Post Op No calf pain noted
--- OUTSIDE RECORDS SUMMARY | 2024-07-03 13:24 | XMS_ITS | Clinical Summary ---
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 Essential hypertension 05/31/2019 Mass of breast 01/22/2009 Surgical History Surgery Date Site/Laterality Comments HYSTERECTOMY 04/18/2007 - 04/17/2008 BILATERAL SALPINGOOPHORECTOMY 04/18/2020 - 04/17/2021 midurethral sling Medical History Medical History Date Comments Hypertension Skinner syndrome Family History Medical History Relation Name Comments Hypertension Father Liver cancer Father Lung cancer Father Diabetes Maternal Grandfather Diabetes Maternal Grandmother Lung cancer Maternal Grandmother Breast cancer Mother Diabetes Mother Bone cancer Paternal Grandmother Breast cancer Paternal Grandmother Stomach cancer Paternal Grandmother Relation Name Status Comments Father Maternal Grandfather Maternal Grandmother Mother Paternal Grandmother Social History Tobacco Use Types Packs/Day Years [...] on file Legal Sex Female 2:55 AM MEDIA SALES REPRESENTATIVE Gender Identity Not on file Sexual Orientation Not on file Obstetrics History Para Term AB IAB SAB Ectopic Multiple Livin g Live Births 3 2 2 1 1 2 2 Date Outcome GA Total Labor Labor/2nd/3rd Weight Sex Type Anes PTL Debora A1 A5 Name Clin Term Vag-S pont Living Term Vag-S pont Living SAB Demise Last Filed Vital Signs Vital Sign Reading Time Taken Comments Blood Pressure 156/90 04/01/2023 2:25 PM MEDIA SALES REPRESENTATIVE Pulse 67 04/01/2023 2:25 PM MEDIA SALES REPRESENTATIVE Temperature 36.3 C (97.3 F) 04/01/2023 2:10 PM MEDIA SALES REPRESENTATIVE Respiratory Rate 25 04/01/2023 2:25 PM MEDIA SALES REPRESENTATIVE Oxygen Saturation 100% 04/01/2023 2:25 PM MEDIA SALES REPRESENTATIVE Inhaled Oxygen Concentration - - Weight 83.9 kg (185 lb) 04/01/2023 11:42 AM MEDIA SALES REPRESENTATIVE Height 160 cm (5' 3 ) 04/01/2023 11:42 AM MEDIA SALES REPRESENTATIVE Body Mass Index 32.77 04/01/2023 11:42 AM MEDIA SALES REPRESENTATIVE Plan of Treatment Health Maintenance Due Date Last Done Comments Breast Cancer Screening-Mammogram 1960 Depression Screening 1960 Hepatitis C Screening 1960 Hepatitis B Screening 1980 Regular Well Visit/Exam 18-64 1980 Zoster Vaccine (1 of 2) 2012 DTaP/Tdap/Td Vaccine (2 - Td or Tdap) 11/21/2022 11/21/2012 Influenza Vaccine (#1) 2023 Colon Cancer Screening-Colonoscopy 04/01/2033 04/01/2023, 03/02/2022, 03/03/2020 Colon Cancer Screening-CT Colonography Discontinued 04/01/2023, 03/02/2022, 03/03/2020 Colon Cancer Screening-DNA Stool Discontinued 04/01/2023, 03/02/2022, 03/03/2020 Colon Cancer Screening-FIT Discontinued 04/01, 03/02/2022, 03/03/2020 Colon Cancer Screening-Sigmoidoscopy Discontinued 04/01/2023, 03/02/2022, 03/03/2020 Pneumococcal vaccine <65 Aged Out No longer eligible based on patient's age to complete this topic Medical Devices Implanted Type Area Business Administrator Device Identifier Shelf Expiration Date Model / Serial / Lot [employer] Julianne [id number] Solyx Advantage 9cm Incision Sling Delivery Device Mesh - [id number] Implanted:Qty: 1 on 08/28/2020 by Yamileth Gil MD at [facility] N/A: Urethra [employer] Julianne 12/05/2022 [id number] / / [id number] Description:Suburethral impl ant Procedures Procedure Name Priority Date/Time Associated Diagnosis Comments COLONOSCOPY 04/01/2023 1:16 PM MEDIA SALES REPRESENTATIVE from Last 3 Months or Most Recently Relevant to Health Maintenance Results * COLONOSCOPY (04/01/2023 1:16 PM MEDIA SALES REPRESENTATIVE) Anatomical Region Laterality Modality Other Narrative Procedure Note Marek Mack MD - 04/01/2023 1:16 PM CST ENDOSCOPY LAB Patient Name: Lulu Torres Procedure Date: 04/01/2023 1:16 PM Date of : 1960 Admit Type: Outpatient Age: 62 Gender: Female Attending MD: Marek Mack M.D. Room: [facility] ENDOSCOPY ROOM 02 Note Status: Finalized [...] The scope was passed under direct vision.The [id number] was introduced through the anusand advanced to [...] following this procedure please call my office [phone] After hours and eveningsplease call [phone] and speak to the GI fellow oncall. Please tell the fellow that Dr. Mack [...] 0 Note Initiated On: 04/01/2023 1:16 PM Maerk Mack MD ENDOSCOPY PROCED URES Final Result from Last 3 Months or Most Recently Relevant to Health Maintenance Insurance [facility] H[facility]/PPO Address: [facility] [address] [address] [place] [address] [facility] HMO/PPO Address[address] [place] [id number] [facility] H[facility]/PPO Address: [address] [address] Advance Directives For more information, please contact: [phone] * Full Code (Latest Code Status on File) Date Activated Date Inactivated Comments 03/02/2022 8:33 AM 03/02/2022 3:05 PM * Full Code Date Activated Date Inactivated Comments 08/28/2020 1:49 PM 08/28/2020 7:42 PM * Full Code Date Activated Date Inactivated Comments 03/03/2020 9:28 AM 03/03/2020 3:41 PM Care Teams Freight Car Builder Relationship Specialty Start Date End Date Aura Nelson MD [address] [place] [address] PCP - General Internal Medicine 05/31/19
== END 2024-07-03 11:47 | disposition home or self-care (01) ==
PROVIDERS: PCP Nurse Practitioner Family; Visit Provider Podiatrist Foot & Ankle Surgery
DX: Z98.890 Other specified postprocedural states (principal)
CPT/HCPCS: 73630

== ENCOUNTER 2024-09-22 07:09 | Outpatient (CLI) | payer OTHER, SELFPAY ==
--- OUTSIDE RECORDS SUMMARY | 2024-09-22 07:12 | XMS_ITS ---
Author Organization [facility] Address [address] [place], [place] [id number] Care Team Providers Care Electrician Powerhouse Name Role Phone JORGE ALBERTO LANDEROS Unavailable [phone] Ephraim Pimentel Unavailable Unavailable REASON FOR VISIT The patient reports that the celebrex is tolerated well and has helped with the swelling of her left foot following bunion and hammertoe surgery. The great toe is fine, but the 2nd and 3rd toes are still puffy Medications Medication SIG (Take, Route, Frequency, Duration) Notes Start Date End Date Status Vitamin B 12 100 MCG as directed Orally Active Vitamin D 50 MCG (1999) 1 tablet Oral ly Once a day Active Celecoxib 200 MG 1 capsule as needed Orally Once a day for 30 days Active HYDROcodone-Acetaminophen 5-325 MG 1 tablet as needed Orally every 4-6 hrs 06/14/2024 Active Multivitamin - 1 tablet Orally Once a day Active Encounters Encounter Location Date Provider Diagnosis [facility] [address] [place], [place] [id number] 08/20/2024 JORGE ALBERTO LANDEROS Hallux valgus (acquired), left foot M20.12 ; Other hammer toe(s) (acquired), left foot M20.42 ; Encounter for other specified surgical aftercare Z48.89 and Left foot pain M79.672 Assessments Encounter Date Diagnosis (ICD Code) Assessment Notes Treatment Notes Treatment Clinical Notes Section Notes 08/20/2024 Hallux valgus (acquired), left foot (ICD-10 - M20.12) Surgical Restriction Release: Patient may resume normal bathing. Return to normal shoes. Gradual return to activities as tolerated. Patient instructed to contact the office if any issues arise. 08/20/2024 Other hammer toe(s) (acquired), left foot (ICD-10 - M20.42) 08/20/2024 Encounter for other specified surgical aftercare (ICD-10 - Z48.89) 08/20/2024 Left foot pain (ICD-10 - M79.672) Plan Of Treatment Medication Medication Name Sig Start Date Stop Date Notes Celecoxib 200 MG 1 capsule as needed Orally Once a day for 30 days Treatment Notes Assessment Notes Hallux valgus (acquired), left foot Surgical Restriction Release: Patient may resume normal bathing. Return to normal shoes. Gradual return to activities as tolerated. Patient instructed to contact the office if any issues arise. Next Appt Details Follow Up: 3 Months, Reason: Post op bunion and hammertoe follow-up Provider Name:JORGE ALBERTO LANDEROS, 04:10:00 PM, [address], [address], [phone], Progress Notes * BRANDIGILMER CELINAHDOB: [birth year] (64 yo F)Acc No.[id number]:08/20/2024 Patient: GRACIE LAZAR Provider: Thierry Landeros DPM :1960 A ge:63 Y S ex:Female Date:08/20/2024 Address:[address] [place] [address] Subjective: * Chief Complaints: * 1 . The patient reports that the celebrex is tolerated well and has helped with the swelling of her left foot following bunion and hammertoe surgery. The great toe is fine, but the 2nd and 3rd toes are still puffy. * HPI: H PI: Follow Up Visit P atient presents for follow up visit for post op., Patient states their problem is, improving. She still has swelling. Patient returned to shoes with no issues. The celebrex helps with pain if she happens to overdo it other than that no issues., MA: cecilio. * ROS: G eneral / Constitutional: Patient denies c hills, fever, weakness, night sweats. M usculoskeletal: Patient denies c hildhood foot problems, weakness. P atient complains of j oint pain, bunions, hammertoes. P eripheral Vascular: Patient denies u lceration of feet, cold extremities. ? S kin: Patient denies u lcerations, discoloration. ? N eurologic: Patient denies b alance difficulty, confusion, difficulty speaking, dizziness. * Medical History: * Social History: S ocial drinker. * Medications: T aking Vitamin D 50 MCG (1999 [place]) Tablet 1 tablet Orally Once a day , Taking Vitamin B 12 100 MCG Lozenge as directed Orally , Taking Multivitamin - Tablet 1 tablet Orally Once a day , Taking HYDROcodone-Acetaminophen 5-325 MG Tablet 1 tablet as needed Orally every 4-6 hrs , Taking Celecoxib 200 MG Capsule 1 capsule as needed Orally Once a day , stop date 08/22/2024, Medication List reviewed and reconciled with the patient Objective: * Vitals: * Examination: C onstitutional: Constitutional T he patient is awake, alert, well developed, well groomed and well nourished. D ermatologic: Skin findings: S kin is warm, dry, supple with no breaks in the skin. V ascular: Dorsalis pedis pulse: 2 /4, bilateral. Posterior tibial pulse: 2 /4, bilateral. Capillary refill: l ess than 3 seconds. Edema: l ocalized edema to the left 2nd and 3rd digits.? N eurologic: Gross sensation G ross sensation is intact to light touch.? M usculoskeletal: Muscle Strength M uscle strength is 5/5 in regards to dorsiflexion, plantarflexion, inversion, and eversion in bilateral lower extremities. ? Assessment: * Assessment: 1. H allux valgus (acquired), left foot - M20.12 (Primary) 2 . O ther hammer toe(s) (acquired), left foot - M20.42 3 . E ncounter for other specified surgical aftercare - Z48.89 4 . L eft foot pain - M79.672 Plan: * Treatment: * Procedure Codes: 9 9024 POSTOP FOLLOW-UP VISIT * Follow Up: 3 Months (Reason: Post op bunion and hammertoe follow-up) * Billing Information: * Visit Code: * Procedure Codes: 52386 POSTOP FOLLOW-UP VISIT. * Electronic signature of JORGE ALBERTO LANDEROS DPM on 09/22/2024 at 07:12 AM CDT Sign off status: Pending * Provider: Thierry Landeros DPM Date: 0 08/20/2024 Generated for Edvin crystal/Silvia/Michela on: 0 09/22/2024 07:12 AM CDT History and Physical Notes * HPI (History of Present Illness) Category Sub-Category Detail Notes Category Not es HPI Follow Up Visit Patient presents for follow up visit for post op., Patient states their problem is, improving. She still has swelling. Patient returned to shoes with no issues. The celebrex helps with pain if she happens to overdo it other than that no issues., MA: mf Examination Category Sub-Category Detail Notes Category Not es Dermatologic Skin findings: Skin is warm, dr y, supple with no breaks in the skin Neurologic Gross sensation Gross sensation is intact to light touch Vascular Dorsalis pedis pulse: 2/4, bilateral Edema: localized edema to t he left 2nd and 3rd digits Capillary refill: less than 3 seconds Posterior tibial pulse: 2/4, bilateral Musculoskeletal Muscle Strength Muscle strength is 5/5 in regards to dorsiflexion, plantarflexion, inversion, and eversion in bilateral lower extremities Constitutional Constitutional The patient is a wake, alert, well developed, well groomed and well nourished
--- OUTSIDE RECORDS SUMMARY | 2024-09-22 07:13 | XMS_ITS ---
Author Organization [facility] Address [address] [place], [place] [id number] Care Team Providers Care Track Laying Machine Operator Name Role Phone TERRANCEJessica JORGE ALBERTO Unavailable [phone] Ephraim Pimentel Unavailable Unavailable Allergies No Known Allergies REASON FOR VISIT The patient returns 5 weeks s/p Bunionectomy and hammertoe correction. She is having some swelling in her toes that is annoying and throbbing Medications Medication SIG (Take, Route, Frequency, Duration) Notes Start Date End Date Status Multivitamin - 1 tablet Orally Once a day Active HYDROcodone-Acetaminophen 5-325 MG 1 tablet as needed Orally every 4-6 hrs 06/14/2024 Active Celecoxib 200 MG 1 capsule as needed Orally Once a day for 30 days 07/23/2024 08/22/2024 Active Vitamin D 50 MCG (1999) 1 tablet Oral ly Once a day Active Vitamin B 12 100 MCG as directed Orally Active Vital Signs Height 63 in 07/23/2024 Height-cm 160.02 cm 07/23/2024 Encounters Encounter Location Date Provider Diagnosis [facility] [address] [place], [place] [id number] 07/23/2024 JORGE ALBERTO LANDEROS Hallux valgus (acquired), left foot M20.12 ; Other hammer toe(s) (acquired), left foot M20.42 ; Encounter for other specified surgical aftercare Z48.89 and Left foot pain M79.672 Assessments Encounter Date Diagnosis (ICD Code) Assessment Notes Treatment Notes Treatment Clinical Notes Section Notes 07/23/2024 Hallux valgus (acquired), left foot (ICD-10 - M20.12) Surgical Restriction Release: Patient may resume normal bathing. Return to normal shoes. Gradual return to activities as tolerated. Patient instructed to contact the office if any issues arise. 07/23/2024 Other hammer toe(s) (acquired), left foot (ICD-10 - M20.42) 07/23/2024 Encounter for other specified surgical aftercare (ICD-10 - Z48.89) 07/23/2024 Left foot pain (ICD-10 - M79.672) Plan Of Treatment Medication Medication Name Sig Start Date Stop Date Notes Celecoxib 200 MG 1 capsule as needed Orally Once a day for 30 days 07/23/2024 08/22/2024 Treatment Notes Assessment Notes Hallux valgus (acquired), left foot Surgical Restriction Release: Patient may resume normal bathing. Return to normal shoes. Gradual return to activities as tolerated. Patient instructed to contact the office if any issues arise. Next Appt Details Follow Up: 4 Weeks, Reason: See how celebrex, toe sleeves, and return to shoes helped swelling Provider Name:JORGE ALBERTO LANDEROS, 04:10:00 PM, [address], [address], [phone], Progress Notes * DAVID LEEOB: [birth year] (64 yo F)Acc No.[id number]:07/23/2024 Patient: GRACIE LAZAR Provider: Thierry Landeros DPM :1960 A ge:63 Y S ex:Female Date:07/23/2024 Address:[facility] [place] [address] Subjective: * Chief Complaints: * 1 . The patient returns 5 weeks s/p Bunionectomy and hammertoe correction. She is having some swelling in her toes that is annoying and throbbing. * HPI: H PI: [facility] for post-operative visit of the left foot. Patient states she has had a lot of pressure in her #3 digit that has been bothering her. Patient state she also has a lot of swelling and redness in #2 and #3 toes. MA LB. * ROS: G eneral / Constitutional: Patient [...] confusion, difficulty speaking, dizziness. * Medical History: M edical History Verified. * Family History: N o Family History documented.. * Social History: S ocial drinker. * [...] List reviewed and reconciled with the patient * Allergies: N .K.D.A. Objective: * Vitals: S hoe Size: 9, Ht: 63 in, Ht-cm: 160.02 cm. * Examination: C onstitutional: Constitutional T he [...] and eversion in bilateral lower extremities. ? R adiographs: Left Foot X rays reveal good correction of the deformities and position of the osteotomies. All hardware is in good position. Xray Order T est Requested: 3 Views Weightbearing (AP, LAT, Oblique) Foot, left. Assessment: * Assessment: 1. H allux valgus (acquired), left foot - M20.12 (Primary) 2 . O ther hammer toe(s) (acquired), left foot - M20.42 3 . E ncounter for other specified surgical aftercare - Z48.89 4 . L eft foot pain - M79.672 Plan: * Treatment: * Immunizations: Immunization record has been reviewed and updated. * Procedure Codes: 9 9024 POSTOP FOLLOW-UP VISIT, 64787 X-RAY EXAM OF FOOT, Modifiers: LT * Follow Up: 4 Weeks (Reason: See how celebrex, toe sleeves, and return to shoes helped swelling) * Billing Information: * Visit Code: * Procedure Codes: 00564 POSTOP FOLLOW-UP VISIT. 48186 X-RAY EXAM OF FOOT. Modifiers: LT * Electronic signature of JORGE ALBERTO LANDEROS DPM on 09/22/2024 at 07:12 AM CDT Sign off status: Pending * Provider: Thierry Landeros DPM Date: 0 07/23/2024 Generated for Edvin crystal/Silvia/Michela on: 0 09/22/2024 07:12 AM CDT History and Physical Notes * HPI (History of Present Illness) Category Sub-Category Detail Notes Category Not es HPI Follow Up Visit Patient presents for follow-up visit for post-operative visit of the left foot. Patient states she has had a lot of pressure in her #3 digit that has been bothering her. Patient state she also has a lot of swelling and redness in #2 and #3 toes. MA LB Examination Category Sub-Category Detail Notes Category Not [...] well developed, well groomed and well nourished Radiographs Left Foot Xrays reveal goo d correction of the deformities and position of the osteotomies. All hardware is in good position Xray Order Test Requested: 3 Vi ews Weightbearing (AP, LAT, Oblique) Foot, left
--- OUTSIDE RECORDS SUMMARY | 2024-09-22 07:13 | XMS_ITS ---
Author Organization [facility] Address [address] [place], [place] [id number] Care Team Providers Care Monkey Trainer Name Role Phone TIGRE JORGE ALBERTO Unavailable [phone] Ephraim Pimentel Unavailable Unavailable REASON FOR VISIT Patient returns 3 weeks s/p Kvng bunionectomy and hammertoe surgery. She is doing well with no issues Medications Medication SIG (Take, Route, Frequency, Duration) Notes Start Date End Date Status Multivitamin - 1 tablet Orally Once a day Active HYDROcodone-Acetaminophen 5-325 MG 1 tablet as needed Orally every 4-6 hrs 06/14/2024 Active Vitamin B 12 100 MCG as directed Orally Active Vitamin D 50 MCG (1999) 1 tablet Oral ly Once a day Active Encounters Encounter Location Date Provider Diagnosis [address] [phone] 07/05/2024 JORGE ALBERTO LANDEROS Hallux valgus (acquired), left foot M20.12 ; Other hammer toe(s) (acquired), left foot M20.42 and Encounter for other specified surgical aftercare Z48.89 Assessments Encounter Date Diagnosis (ICD Code) Assessment Notes Treatment Notes Treatment Clinical Notes Section Notes 07/05/2024 Hallux valgus (acquired), left foot (ICD-10 - M20.12) 07/05/2024 Other hammer toe(s) (acquired), left foot (ICD-10 - M20.42) 07/05/2024 Encounter for other specified surgical aftercare (ICD-10 - Z48.89) 07/05/2024 Other Suture Removal: The sutures were removed. K-Wire Removal: Utilizing standard aseptic technique, the percutaneous K-wire was removed without incident. Surgical Post Operative Visit: Continue post-operative restrictions. Patient may resume normal bathing. Wear surgical shoe at all times when bearing weight. Decrease activity. Plan Of Treatment Treatment Notes Assessment Notes Other Suture Removal: The sutures were removed. K-Wire Removal: Utilizing standard aseptic technique, the percutaneous K-wire was removed without incident. Surgical Post Operative Visit: Continue post-operative restrictions. Patient may resume normal bathing. Wear surgical shoe at all times when bearing weight. Decrease activity. Next Appt Details Follow Up: 2 Weeks, Reason: Xrays 3 views of the left foot. Anticipate progression to regular shoes Provider Name:JORGE ALBERTO LANDEROS, 04:10:00 PM, [address], [address], [phone], Progress Notes * CELINA LEEHDOB: [birth year] (64 yo F)Acc No.[id number]:07/05/2024 Patient: GRACIE LAZAR Provider: Thierry Landeros DPM :1960 A ge:63 Y S ex:Female Date:07/05/2024 Address:[address] [place] [address] Subjective: * Chief Complaints: * 1 . Patient returns 3 weeks s/p Kvng bunionectomy and hammertoe surgery. She is doing well with no issues. * HPI: H [facility]. Patient states that Tuesday the foot was painful and if she wasn't at work she would have taken a painkiller. She states that she took an Ibuprofen when she got home that evening and the foot was better overnight. Other than that she has only been getting twinges a couple of times thought out the day. , MA: agustina. * Medical History: * Social History: S ocial drinker. * Medications: T aking Vitamin D 50 MCG (1999) Tablet 1 tablet Orally Once a day [...] 9024 POSTOP FOLLOW-UP VISIT * Follow Up: 2 Weeks (Reason: Xrays 3 views of the left foot. Anticipate progression to regular shoes) * Billing Information: * Visit Code: * Procedure Codes: 37877 POSTOP FOLLOW-UP VISIT. * Electronic signature of JORGE ALBERTO LANDEROS DPM on 09/22/2024 at 07:13 AM CDT Sign off status: Pending * Provider: Thierry Landeros DPM Date: 0 07/05/2024 Generated for Edvin crystal/Silvia/Michela on: 0 09/22/2024 07:13 AM CDT History and Physical Notes * HPI (History of Present Illness) Category Sub-Category Detail Notes Category Not es HPI Follow Up Visit Patient presents for follow-up visit for left foot post op. Patient states that Tuesday the foot was painful and if she wasn't at work she would have taken a painkiller. She states that she took an Ibuprofen when she got home that evening and the foot was better overnight. Other than that she has only been getting twinges a couple of times thought out the day. , MA: mca Examination Category Sub-Category Detail [...]
--- OUTSIDE RECORDS SUMMARY | 2024-09-22 07:13 | XMS_ITS | Patient Health Record ---
Author Organization [facility] Address [address] [place], [place] [address] Care Team Providers Care Electric Blanket Wirer Name Role Phone BALJORGE ALBERTO Lopez Unavailable [phone] Ephraim Pimentel Unavailable Unavailable VINNY SHIRLEY Unavailable [phone] Allergies No Known Allergies Reason For Referral [...] 1 tablet Orally Once a day Active Vital Signs Height-cm 160.02 cm 07/23/2024 Height 63 in 07/23/2024 Encounters Encounter Location Date Provider Diagnosis [address] [id number] 06/15/2024 JORGE ALBERTO TIGRE [address] [id number] 06/21/2024 JORGE ALBERTO SNOOK Hallux valgus (acquired), left foot M20.12 ; Other hammer toe(s) (acquired), left foot M20.42 and Encounter for other specified surgical aftercare Z48.[address] [id number] 07/05/2024 JORGE ALBERTO SNOOK Hallux valgus (acquired), left foot M20.12 ; Other hammer toe(s) (acquired), left foot M20.42 and Encounter for other specified surgical aftercare Z48.89 [facility] [place] [address] [address] [place] [id number] 07/23/2024 JORGE ALBERTO SNOOK Hallux valgus (acquired), left foot M20.12 ; Other hammer toe(s) (acquired), left foot M20.42 ; Encounter for other specified surgical aftercare Z48.89 and Left foot pain M79.672 [facility] [place] [address] [address] [place] [id number] 08/20/2024 JORGE ALBERTO SNOOK Hallux valgus (acquired), left foot M20.12 ; Other hammer toe(s) (acquired), left foot M20.42 ; Encounter for other specified surgical aftercare Z48.89 and Left foot pain M79.[address] [id number] 12/15/2023 VINNY SHIRLEY Unspecified atherosclerosis of [place] arteries of extremities, bilateral legs I70.203 ; Other hammer toe(s) (acquired), right foot M20.41 ; Other hammer toe(s) (acquired), left foot M20.42 ; Hallux valgus (acquired), right foot M20.11 and Hallux valgus (acquired), left foot M20.[address] [id number] 05/03/2024 JORGE ALBERTO SNOOK Hallux valgus (acquired), left foot M20.12 ; Other hammer toe(s) (acquired), left foot M20.42 and Left foot pain M79.672 [facility] [address] [id number] 06/14/2024 JORGE ALBERTO SNOOK Assessments Encounter Date Diagnosis (ICD Code) Assessment Notes Treatment Notes Treatment Clinical Notes Section Notes 12/15/2023 Unspecified atherosclerosis of [place] arteries of extremities, bilateral legs (ICD-10 - [...] (acquired), left foot (ICD-10 - M20.42) 07/23/2024 Hallux valgus (acquired), left foot (ICD-10 - M20.12) Surgical Restriction Release: Patient may resume normal bathing. Return to normal shoes. Gradual return to activities as tolerated. Patient instructed to contact the office if any issues arise. 07/23/2024 Other hammer toe(s) (acquired), left foot (ICD-10 - M20.42) 08/20/2024 Hallux valgus (acquired), left foot (ICD-10 - M20.12) Surgical Restriction Release: Patient may resume normal bathing. Return to normal shoes. Gradual return to activities as tolerated. Patient instructed to contact the office if any issues arise. 08/20/2024 Other hammer toe(s) (acquired), left foot (ICD-10 - M20.42) 07/05/2024 Hallux valgus (acquired), left foot (ICD-10 - M20.12) 07/05/2024 Other hammer toe(s) (acquired), left foot (ICD-10 - M20.42) 07/05/2024 Encounter for other specified surgical aftercare (ICD-10 - Z48.89) 08/20/2024 Encounter for other specified surgical aftercare (ICD-10 - Z48.89) 07/23/2024 Encounter for other specified surgical aftercare (ICD-10 - Z48.89) 06/21/2024 Encounter for other specified surgical aftercare (ICD-10 - Z48.89) 05/03/2024 Left foot pain (ICD-10 - M79.672) 12/15/2023 Other hammer toe(s) (acquired), left foot (ICD-10 - M20.42) 12/15/2023 Hallux valgus (acquired), right foot (ICD-10 - M20.11) 07/23/2024 Left foot pain (ICD-10 - M79.672) 08/20/2024 Left foot pain (ICD-10 - M79.672) 12/15/2023 Hallux valgus (acquired), left foot (ICD-10 [...] 3 views of the left foot at [facility] 07/05/2024 Other Suture Removal: The sutures were removed. K-Wire Removal: Utilizing standard aseptic technique, the percutaneous K-wire was removed without incident. Surgical Post Operative Visit: Continue post-operative restrictions. Patient may resume normal bathing. Wear surgical shoe at all times when bearing weight. Decrease activity. 05/03/2024 Other Surgical Consent The patient understands [...] Details Provider Name:JORGE ALBERTO LANDEROS, 04:10:00 PM, [address], [address], [phone], Insurance Providers Payer Name Payer Address Payer Phone Subscriber Number Group Number Insured Name Patient Relationship to Insured Coverage Start Date Coverage End Date [place] [employer] [facility] [address] [address] [place], [place] [id number] GRACIE LEE Self - patient is the insured
--- OUTSIDE RECORDS SUMMARY | 2024-09-22 07:14 | XMS_ITS | Clinical Summary ---
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 Essential hypertension [...] on file Legal Sex Female 2:55 AM TOY ASSEMBLY SUPERVISOR Gender Identity Not on file Sexual Orientation [...] Comments Blood Pressure 156/90 04/01/2023 2:25 PM TOY ASSEMBLY SUPERVISOR Pulse 67 04/01/2023 2:25 PM TOY ASSEMBLY SUPERVISOR Temperature 36.3 C (97.3 F) 04/01/2023 2:10 PM TOY ASSEMBLY SUPERVISOR Respiratory Rate 25 04/01/2023 2:25 PM TOY ASSEMBLY SUPERVISOR Oxygen Saturation 100% 04/01/2023 2:25 PM TOY ASSEMBLY SUPERVISOR Inhaled Oxygen Concentration - - Weight 83.9 kg (185 lb) 04/01/2023 11:42 AM TOY ASSEMBLY SUPERVISOR Height 160 cm (5' 3) 04/01/2023 11:42 AM TOY ASSEMBLY SUPERVISOR Body Mass Index 32.77 04/01/2023 11:42 AM TOY ASSEMBLY SUPERVISOR Plan of Treatment Health Maintenance Due Date Last Done Comments Breast Cancer Screening-Mammogram 1962 Depression Screening 1962 Hepatitis C Screening 1962 Hepatitis B Screening 1980 Regular Well Visit/Exam 18-64 1980 Zoster Vaccine (1 of 2) 2012 DTaP/Tdap/Td Vaccine (2 - Td or Tdap) 11/21/2022 11/21/2012 Influenza Vaccine (Season Ended) 2024 Colon Cancer Screening-Colonoscopy 04/01/2033 04/01/2023, 03/02/2022, 03/03/2020 Colon Cancer Screening-CT Colonography Discontinued 04/01/2023, 03/02/2022, 03/03/2020 Colon Cancer Screening-DNA Stool Discontinued 04/01/2023, 03/02/2022, 03/03/2020 Colon Cancer Screening-FIT Discontinued 04/01, 03/02/2022, 03/03/2020 Colon Cancer Screening-Sigmoidoscopy Discontinued 04/01/2023, 03/02/2022, 03/03/2020 Pneumococcal vaccine <65 Aged Out No longer eligible based on patient's age to complete this topic Medical Devices Implanted Type Area Maintenance Inspector Device Identifier Shelf Expiration Date Model / Serial / Lot Sm[employer] Julianne [id number] Solyx Advantage 9cm Incision Sling Delivery Device Mesh - [id number] Implanted:Qty: 1 on 08/28/2020 by Yamileth Gil MD at [facility] N/A: Urethra [employer] Julianne 12/05/2022 [id number] / / [id number] Description:Suburethral impl ant Procedures Procedure Name Priority Date/Time Associated Diagnosis Comments COLONOSCOPY 04/01/2023 1:16 PM TOY ASSEMBLY SUPERVISOR from Last 3 Months or Most Recently Relevant to Health Maintenance Results * COLONOSCOPY (04/01/2023 1:16 PM TOY ASSEMBLY SUPERVISOR) Anatomical Region Laterality Modality Other Narrative Procedure Note Marek Mack MD - 04/01/2023 1:16 PM [facility] ENDOSCOPY LAB Patient Name: Lulu Torres Procedure Date: 04/01/2023 1:16 PM Date of : 1960 Admit Type: Outpatient Age: 62 Gender: Female Attending MD: Marek Mack M.D. Room: [facility] ENDOSCOPY ROOM 02 Note Status: Finalized [...] The scope was passed under direct vision.The [id number] was introduced through the anusand advanced to [...] following this procedure please call my office [phone]). After hours and eveningsplease call [phone] and speak to the GI fellow oncall. [...] Most Recently Relevant to Health Maintenance Insurance [facility] [employer] [address] Advance Directives For more information, please contact: [phone] * Full Code (Latest Code Status on File) Date Activated Date Inactivated Comments 03/02/2022 8:33 AM 03/02/2022 3:05 PM * Full Code Date Activated Date Inactivated Comments 08/28/2020 1:49 PM 08/28/2020 7:42 PM * Full Code Date Activated Date Inactivated Comments 03/03/2020 9:28 AM 03/03/2020 3:41 PM Care Teams Hemodialysis Charge Nurse Relationship Specialty Start Date End Date Aura Nelson MD [address] [place] [address] PCP - General Internal Medicine 05/31/19
--- OUTSIDE RECORDS SUMMARY | 2024-09-22 07:14 | XMS_ITS | Referral Summary ---
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 Essential hypertension [...] on file Legal Sex Female 2:55 AM AIR PUMPER Gender Identity Not on file Sexual Orientation Not on file Last Filed Vital Signs Vital Sign Reading Time Taken Comments Blood Pressure 156/90 04/01/2023 2:25 PM AIR PUMPER Pulse 67 04/01/2023 2:25 PM AIR PUMPER Temperature 36.3 C (97.3 F) 04/01/2023 2:10 PM AIR PUMPER Respiratory Rate 25 04/01/2023 2:25 PM AIR PUMPER Oxygen Saturation 100% 04/01/2023 2:25 PM AIR PUMPER Inhaled Oxygen Concentration - - Weight 83.9 kg (185 lb) 04/01/2023 11:42 AM AIR PUMPER Height 160 cm (5' 3) 04/01/2023 11:42 AM AIR PUMPER Body Mass Index 32.77 04/01/2023 11:42 AM AIR PUMPER Plan of Treatment Not on file Medical Devices Implanted Type Area System Engineer Device Identifier Shelf Expiration Date Model / Serial / Lot Tot[employer] Julianne [id number] Solyx Advantage 9cm Incision Sling Delivery Device Mesh - [id number] Implanted:Qty: 1 on 08/28/2020 by Yamileth Gil MD at [facility] N/A: Urethra [place] [employer] [facility] 12/05/2022 [id number] / / [id number] Description:Suburethral impl ant Procedures Procedure Name Priority Date/Time Associated Diagnosis Comments COLONOSCOPY 04/01/2023 1:16 PM AIR PUMPER from Last 3 Months or Most Recently Relevant to Health Maintenance Results * COLONOSCOPY (04/01/2023 1:16 PM AIR PUMPER) Anatomical Region Laterality Modality Other Narrative Procedure Note Marek Mack MD - 04/01/2023 1:16 PM CST ENDOSCOPY LAB Patient Name: Lulu Torres Procedure Date: 04/01/2023 1:16 PM Date of : 1960 Admit Type: Outpatient Age: 62 Gender: Female Attending MD: Marek Mack M.D. Room: [facility] ENDOSCOPY ROOM 02 Note Status: Finalized Procedure: [...] The scope was passed under direct vision.The [id number] was introduced through the anusand advanced to [...] following this procedure please call my office [phone]). After hours and eveningsplease call [phone] and speak to the GI fellow idalia. [...] Most Recently Relevant to Health Maintenance Insurance [facility] [employer] [address] [employer] [address] Advance Directives For more information, please contact: [phone] * Full Code (Latest Code Status on File) Date Activated Date Inactivated Comments 03/02/2022 8:33 AM 03/02/2022 3:05 PM * Full Code Date Activated Date Inactivated Comments 08/28/2020 1:49 PM 08/28/2020 7:42 PM * Full Code Date Activated Date Inactivated Comments 03/03/2020 9:28 AM 03/03/2020 3:41 PM Care Teams General Manager Farm Relationship Specialty Start Date End Date Aura Nelson MD [address] [place] [address] PCP - General Internal Medicine 05/31/19
[2024-09-22 07:59] LABS: Cholesterol 194 mg/dL (0-200); HDL Direct 53 mg/dL; LDL Cholesterol Calculated 128 mg/dL (<130); Triglycerides 67 mg/dL (<150)
[2024-09-22 08:17] LABS: Vitamin D 25 Hydroxy 84.6 ng/mL
== END 2024-09-22 07:10 | disposition home or self-care (01) ==
LOC: CHSLAB 07:10
PROVIDERS: PCP Nurse Practitioner Family; Visit Provider Nurse Practitioner Family
DX: E55.9 Vitamin D deficiency, unspecified (principal); E78.00 Pure hypercholesterolemia, unspecified
CPT/HCPCS: 36415; 80061; 82306

== ENCOUNTER 2024-12-23 03:30 | Emergency (ER) | payer OTHER, SELFPAY ==
--- OUTSIDE RECORDS SUMMARY | 2024-06-15 02:30 | XMS_ITS ---
Author Organization [facility] Address [address] [place], [place] [id number] Care Team Providers Care Records Custodian Name Role Phone JORGE ALBERTO LANDEROS Unavailable [phone] Ephraim Pimentel Unavailable Unavailable REASON FOR VISIT [facility] Encounters Encounter Location Date Provider Diagnosis [address] [id number] 06/15/2024 JORGE ALBERTO LANDEROS Plan Of Treatment Next Appt Details Provider Name:JORGE ALBERTO LANDEROS, 04:10:00 PM, [address], [facility] [address], [place], [phone], Progress Notes * CELINA LEEHDOB: [birth year] (64 yo F)Acc No.[id number]:06/15/2024 Patient: Stephanie GRACIE ORTIZ Provider: Thierry Landeros DPM :1960 A ge:63 Y S ex:Female Date:06/15/2024 Address: [facility] [place], [place] * Billing Information: * Visit Code: * Procedure Codes: * Electronic signature of JORGE ALBERTO LANDEROS DPM on 12/23/2024 at 03:37 AM CDT Sign off status: Pending * Provider: Thierry Landeros DPM Date: 0 06/15/2024 Generated for Edvin crystal/Charity on: 0 12/23/2024 03:37 AM CDT
[2024-12-23] VITALS (31 sets, daily range): BP systolic 105–143; BP diastolic 67–104; PULSE 78–109; RESP 16–24; TEMP 36.8; O2SAT 91–100
--- NOTE | ~2024-12-23 | XR_ITS ---
EXAMINATION: XR chest 1V portable, 12/23/2024 3:45 CDT HISTORY: Shortness of breath COMPARISON: No comparisons available. Technique: Single view. Findings: The lungs are clear, no effusion. No pneumothorax. Heart is normal size. Mediastinal and hilar contours are within normal limits. Bony thorax no acute abnormality. Impression: No acute cardiopulmonary abnormality. Reviewed, dictated and finalized at location A. Impression: No acute cardiopulmonary abnormality.
--- OUTSIDE RECORDS SUMMARY | 2024-12-23 03:37 | XMS_ITS | Clinical Summary ---
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 Essential hypertension [...] on file Legal Sex Female 2:55 AM DRAFTING INSTRUCTOR Gender Identity Not on file Sexual Orientation [...] Comments Blood Pressure 156/90 04/01/2023 2:25 PM DRAFTING INSTRUCTOR Pulse 67 04/01/2023 2:25 PM DRAFTING INSTRUCTOR Temperature 36.3 C (97.3 F) 04/01/2023 2:10 PM DRAFTING INSTRUCTOR Respiratory Rate 25 04/01/2023 2:25 PM DRAFTING INSTRUCTOR Oxygen Saturation 100% 04/01/2023 2:25 PM DRAFTING INSTRUCTOR Inhaled Oxygen Concentration - - Weight 83.9 kg (185 lb) 04/01/2023 11:42 AM DRAFTING INSTRUCTOR Height 160 cm (5' 3) 04/01/2023 11:42 AM DRAFTING INSTRUCTOR Body Mass Index 32.77 04/01/2023 11:42 AM DRAFTING INSTRUCTOR Plan of Treatment Health Maintenance Due Date Last Done Comments Breast Cancer Screening-Mammogram 1960 Depression Screening 1962 Hepatitis C Screening 1962 Hepatitis B Screening 1980 Regular Well Visit/Exam 18-64 1980 Zoster Vaccine (1 of 2) 2012 DTaP/Tdap/Td Vaccine (2 - Td or Tdap) 11/21/2022 11/21/2012 Influenza Vaccine (#1) 2024 Colon Cancer Screening-Colonoscopy 04/01/2033 04/01/2023, 03/02/2022, 03/03/2020 Colon Cancer Screening-CT Colonography Discontinued 04/01/2023, 03/02/2022, 03/03/2020 Colon Cancer Screening-DNA Stool Discontinued 04/01/2023, 03/02/2022, 03/03/2020 Colon Cancer Screening-FIT Discontinued 04/01, 03/02/2022, 03/03/2020 Colon Cancer Screening-Sigmoidoscopy Discontinued 04/01/2023, 03/02/2022, 03/03/2020 Pneumococcal vaccine <65 Aged Out No longer eligible based on patient's age to complete this topic Medical Devices Implanted Type Area Individual Small Group Instructor Device Identifier Shelf Expiration Date Model / Serial / Lot [employer] Julianne [id number] Solyx Advantage 9cm Incision Sling Delivery Device Mesh - [id number] Implanted:Qty: 1 on 08/28/2020 by Yamileth Gil MD at [facility] N/A: Urethra [employer] Julianne 12/05/2022 [id number] / / [id number] Description:Suburethral impl ant Procedures Procedure Name Priority Date/Time Associated Diagnosis Comments COLONOSCOPY 04/01/2023 1:16 PM DRAFTING INSTRUCTOR from Last 3 Months or Most Recently Relevant to Health Maintenance Results * COLONOSCOPY (04/01/2023 1:16 PM DRAFTING INSTRUCTOR) Anatomical Region Laterality Modality Other Narrative Procedure Note Marek Mack MD - 04/01/2023 1:16 PM CST ENDOSCOPY LAB Patient Name: Lulu Torres Procedure Date: 04/01/2023 1:16 PM Date of : 1960 Admit Type: Outpatient Age: 62 Gender: Female Attending MD: Marek Mack M.D. Room: [facility] ENDOSCOPY ROOM 02 Note Status: Finalized [...] The scope was passed under direct vision.The [id number] was introduced through the anusand advanced to [...] following this procedure please call my office [phone]). After hours and eveningsplease call [phone] and speak to the GI fellow oncall. [...] Most Recently Relevant to Health Maintenance Insurance [facility] [employer] [address] Advance Directives For more information, please contact: [phone] * Full Code (Latest Code Status on File) Date Activated Date Inactivated Comments 03/02/2022 8:33 AM 03/02/2022 3:05 PM * Full Code Date Activated Date Inactivated Comments 08/28/2020 1:49 PM 08/28/2020 7:42 PM * Full Code Date Activated Date Inactivated Comments 03/03/2020 9:28 AM 03/03/2020 3:41 PM Care Teams Multiple Needle Stitcher Relationship Specialty Start Date End Date Aura Nelson MD [address] [place] [address] PCP - General Internal Medicine 05/31/19
--- OUTSIDE RECORDS SUMMARY | 2024-12-23 03:37 | XMS_ITS | Clinical Summary ---
Author Organization [facility] Address [address] [place] [address] Care Team Providers Care Certified Legal Investigator Name Role Phone David Philippe PA Primary Care Provider [phone] Allergies No known active allergies Medications Vitamin [...] Active Active Problems No known active problems Social History Tobacco Use Types Packs/Day Years Used Date Smoking Tobacco: Never Smokeless Tobacco: Never Tobacco Cessation:Counseling Given: Not Answered Alcohol Use Standard Drinks/Week Comments Yes 0 (1 standard drink = 0.6 oz pur e alcohol) social Comments No Sex and Gender Information Value Date Recorded Sex Assigned at Female 06/15/2024 5:22 AM AUTOMATION ANALYST Legal Sex Female 10:51 AM AUTOMATION ANALYST Gender Identity Not on file Sexual Orientation Not on file Last Filed Vital Signs Vital Sign Reading Time Taken Comments Blood Pressure 130/85 06/15/2024 1:15 PM AUTOMATION ANALYST Pulse 64 06/15/2024 1:15 PM AUTOMATION ANALYST Temperature 35.9 C (96.6 F) 06/15/2024 1:15 PM AUTOMATION ANALYST Respiratory Rate 16 06/15/2024 1:15 PM AUTOMATION ANALYST Oxygen Saturation 98% 06/15/2024 1:15 PM AUTOMATION ANALYST Inhaled Oxygen Concentration - - Weight 89.2 kg (196 lb 10.4 oz) 06/15/2024 6:30 AM AUTOMATION ANALYST Height 160 cm (5' 3) 06/15/2024 6:30 AM AUTOMATION ANALYST Body Mass Index 34.84 06/15/2024 6:30 AM AUTOMATION ANALYST Plan of Treatment Health Maintenance Due Date Last Done Comments Colorectal Cancer Screening Colonoscopy (10 Years) 1960 Annual Physical 1965 Hepatitis C 1980 Mammogram Screening 2002 Pneumococcal Vaccine: 50+ Years (1 of 1 - PCV) 2012 Zoster Vaccines (1 of 2) 2012 COVID-19 Vaccine (2 - 2023-2 5 season) 2023 11/05/2020 DTaP, Tdap and Td Vaccines ( 3 - Td or Tdap) 01/13/2034 01/14/2024, 11/21/2012 RSV Immunization or 60+ Years (1 - 1-dose 75+ series) 2037 Meningococcal B Vaccine Aged Out No l onger eligible based on patient's age to complete this topic Meningococcal Vaccine Aged Out No babs stan eligible based on patient's age to complete this topic RSV Immunizations Under 20 Months Aged Out No longer eligible b ased on patient's age to complete this topic Medical Devices Implanted Type Area Shift Production Supervisor Device Identifier Shelf Expiration Date Model / Serial / Lot 3.8 Counter Sink Implanted:Qty : 1 on 06/15/2024 by See Wetzel DPM at [facility] Screw Left: Foot [employer] ABDULLAHI [id number] / / 3.0x16 Mm Asnis Screw Implanted:Qty : 1 on 06/15/2024 by See Wetzel DPM at [facility] Screw Left: Foot [employer] ABDULLAHI [id number] / / Toetac Xpress Implanted:Qty : 2 on 06/15/2024 by See Wetzel DPM at [facility] Left: Foot [employer] [id number] 02/14/2027 [id number] / / [id number] Explanted Type Area Shift Production Supervisor Device Identifier Shelf Expiration Date Model / Serial / Lot 1.2 K-Wire Explanted:Qty: 1 on 06/15/2024 by See Wetzel DPM at [facility] Wire Left: Foot [employer] ABDULLAHI [id number] / / Insurance [facility] [place] [id number] Care Teams Certified Legal Investigator Relationship Specialty Start Date End Date David Philippe FNP [address] [place] [phone] PCP - General Nurse Practitioner Family 06/08/24
--- OUTSIDE RECORDS SUMMARY | 2024-12-23 03:37 | XMS_ITS | Patient Health Record ---
Author Organization [facility] Address [address] [place], [place] [id number] Care Team Providers Care Dag Coater Name Role Phone BALJORGE ALBERTO Lopez Unavailable [phone] Ephraim Pimentel Unavailable Unavailable Allergies No Known Allergies Reason For Referral No Information Medications Medication SIG (Take, Route, Frequency, Duration) Notes Start Date End Date Status Vitamin B 12 100 MCG as directed Orally Active Vitamin D 50 MCG (1999) 1 tablet Oral ly Once a day Active Celecoxib 200 MG 1 capsule as needed Orally Once a day; Duration: 30 days Active HYDROcodone-Acetaminophen 5-325 MG 1 tablet as needed Orally every 4-6 hrs 06/14/2024 Active Multivitamin - 1 tablet Orally Once a day Active Vital Signs Height-cm 160.02 cm 07/23/2024 Height 63 in 07/23/2024 Encounters Encounter Location Date Provider Diagnosis [address] [id number] 06/15/2024 [facility] [address] [place], [place] [id number] 05/03/2024 JORGE ALBERTO SNOOK Hallux valgus (acquired), left foot M20.12 ; Other hammer toe(s) (acquired), left foot M20.42 and Left foot pain M79.[address] [id number] 06/21/2024 JORGE ALBERTO SNOOK Hallux valgus (acquired), left foot M20.12 ; Other hammer toe(s) (acquired), left foot M20.42 and Encounter for other specified surgical aftercare Z48.[address] [id number] 07/05/2024 JORGE ALBERTO SNOOK Hallux valgus (acquired), left foot M20.12 ; Other hammer toe(s) (acquired), left foot M20.42 and Encounter for other specified surgical aftercare Z48.89 [facility] [place] [address] [address] [place] [id number] 07/23/2024 JORGE ALBERTO SNOOK Hallux valgus (acquired), left foot M20.12 ; Other hammer toe(s) (acquired), left foot M20.42 ; Encounter for other specified surgical aftercare Z48.89 and Left foot pain M79.672 [facility] [place] [address] [address] [place] [id number] 08/20/2024 JORGE ALBERTO SNOOK Hallux valgus (acquired), left foot M20.12 ; Other hammer toe(s) (acquired), left foot M20.42 ; Encounter for other specified surgical aftercare Z48.89 and Left foot pain M79.672 [facility] [address] [id number] 06/14/2024 JORGE ALBERTO SNOOK Assessments Encounter Date Diagnosis (ICD Code) Assessment Notes Treatment Notes Treatment Clinical Notes Section Notes 05/03/2024 Hallux valgus (acquired), left foot (ICD-10 [...] 05/03/2024 Left foot pain (ICD-10 - M79.672) 07/23/2024 Left foot pain (ICD-10 - M79.672) 08/20/2024 Left foot pain (ICD-10 - M79.672) 05/03/2024 Other Surgical Consent The patient understands [...] of the left 3rd digit with hardware. 06/21/2024 Other Dressing Change: The old dressing was removed. Utilizing aseptic technique, a new sterile compression dressing was applied. Patient was instructed to keep it dry and not remove it. Continue post-operative restrictions. Keep foot and dressing dry. Wear surgical shoe at all times when bearing weight. Decrease activity. Order: Xrays 3 views of the left foot at [facility] 07/05/2024 Other Suture Removal: The sutures were removed. K-Wire Removal: Utilizing standard aseptic technique, the percutaneous K-wire was removed without incident. Surgical Post Operative Visit: Continue post-operative restrictions. Patient may resume normal bathing. Wear surgical shoe at all times when bearing weight. Decrease activity. Plan Of Treatment Next Appt Details Provider Name:JORGE ALBERTO LANDEROS, 04:10:00 PM, [address], [facility], [place], [place], [id number], Insurance Providers Payer Name Payer Address Payer Phone Subscriber Number Group Number Insured Name Patient Relationship to Insured Coverage Start Date Coverage End Date [employer] [address] [address] [place], [place] [id number] GRACIE LEE Self - patient is the insured
--- NOTE | 2024-12-23 03:40 | PC.NURSE ---
DR MELGOZA AT THE BEDSIDE
--- NOTE | 2024-12-23 03:42 | ED.SOB ---
HPI - SOB/Dyspnea General Chief Complaint: Shortness of Breath/Dyspnea <Willy Armenta MD - Last Filed: 12/23/24 05:22> Stated Complaint: dizzness Short breath <Willy Armenta MD - Last Filed: 12/23/24 05:22> Time Seen by Provider: 12/23/24 03:41 <Willy Armenta MD - Last Filed: 12/23/24 05:22> Source: patient <Willy Armenta MD - Last Filed: 12/23/24 05:22> Mode of arrival: ambulatory <Willy Armenta MD - Last Filed: 12/23/24 05:22> Limitations: no limitations <Willy Armenta MD - Last Filed: 12/23/24 05:22> History of Present Illness HPI Narrative: 64-year-old female with no significant past medical history was woken up with -- generalized itching with maculopapular rash -- shortness of breath -- dry mouth no fever or chills. no tongue or throat swelling. No lightheadedness Patient took 2 tablets of Advil 4 hours ago. no prior allergy to NSAID <Willy Armenta MD - Last Filed: 12/23/24 05:22> MD elicited complaint: shortness of breath <Willy Armenta MD - Last Filed: 12/23/24 05:22> Onset (ago): hour(s) <Willy Armenta MD - Last Filed: 12/23/24 05:22> Timing: constant <Willy Armenta MD - Last Filed: 12/23/24 05:22> Exacerbating factors: nothing <Willy Armenta MD - Last Filed: 12/23/24 05:22> Relieving factors: nothing <Willy Armenta MD - Last Filed: 12/23/24 05:22> Treatment prior to arrival: none <Willy Armenta MD - Last Filed: 12/23/24 05:22> Related Data Home oxygen amount: none <Willy Armenta MD - Last Filed: 12/23/24 05:22> Allergies/Adverse Reactions: Allergies Allergy/AdvReac Type Severity Reaction Status Date / Time No Known Allergies Allergy Unknown Verified 12/12/24 11:24 <Willy Armenta MD - Last Filed: 12/23/24 05:22> Review of Systems Review of Systems: All systems reviewed & are unremarkable except as noted in HPI and below <Willy Armenta MD - Last Filed: 12/23/24 05:22> Constitutional: Constitutional: Reports as per HPI and Reports no additional constitutional complaints <Willy Armenta MD - Last Filed: 12/23/24 05:22> Eyes: Eyes: Reports as per HPI and Reports no additional eye complaints <Willy Armenta MD - Last Filed: 12/23/24 05:22> ENT: Reports system reviewed and no additional complaints, except as documented and Reports as per HPI <Willy Armenta MD - Last Filed: 12/23/24 05:22> Comments: Dry mouth <Willy Armenta MD - Last Filed: 12/23/24 05:22> Cardiovascular: Cardiovascular: Reports as per HPI and Reports no additional cardiovascular complaints <Willy Armenta MD - Last Filed: 12/23/24 05:22> Respiratory: Respiratory: Reports as per HPI, Reports no additional respiratory complaints and Reports dyspnea <Willy Armenta MD - Last Filed: 12/23/24 05:22> Gastrointestinal: Gastrointestinal: Reports as per HPI and Reports no additional gastrointestinal complaints <Willy Armenta MD - Last Filed: 12/23/24 05:22> Genitourinary: Genitourinary: Reports no additional female genitourinary complaints and Reports as per HPI <Willy Armenta MD - Last Filed: 12/23/24 05:22> Musculoskeletal: Musculoskeletal: Reports no additional musculoskeletal complaints and Reports as per HPI <Willy Armenta MD - Last Filed: 12/23/24 05:22> Integumentary/Breasts: Skin/Breast: Reports system reviewed and no additional complaints, except as docu and Reports as per HPI <Willy Armenta MD - Last Filed: 12/23/24 05:22> Comments: generalized maculopapular rash <Willy Armenta MD - Last Filed: 12/23/24 05:22> Neurologic: Reports system reviewed and no additional complaints, except as documented and Reports as per HPI <Willy Armenta MD - Last Filed: 12/23/24 05:22> Psychiatric: Psychiatric: Reports no additional psychiatric complaints and Reports as per HPI <Willy Armenta MD - Last Filed: 12/23/24 05:22> Endocrine: Endocrine: Reports no additional endocrine complaints and Reports as per HPI <Willy Armenta MD - Last Filed: 12/23/24 05:22> Hematologic/Lymphatic: Hematologic/Lymphatic: Reports no additional hematologic/lymphatic complaints and Reports as per HPI <Willy Armenta MD - Last Filed: 12/23/24 05:22> Allergic/Immunologic: Allergic/Immunologic: Reports no additional allergic/immunologic complaints and Reports as per HPI <Willy Armenta MD - Last Filed: 12/23/24 05:22> [facility] Past Medical History Medical History: Medical History MSH6 gene mutation positive Vitamin D deficiency Hypertension Skinner syndrome <Willy Armenta MD - Last Filed: 12/23/24 05:22> Surgical History Surgical History: Surgical History Hallux abductovalgus History of total hysterectomy done along with bladder sling, August 2021 History of partial hysterectomy 2007 History of bilateral salpingo-oophorectomy History of bladder surgery urethral sling <Willy Armenta MD - Last Filed: 12/23/24 05:22> Family History Family History: Family History Mother Diabetes mellitus Breast cancer Father , from liver cancer, metastasized to lung at 59 year old Hypertension Liver cancer Lung cancer <Willy Armenta MD - Last Filed: 12/23/24 05:22> Social History Social History: Social History Smoking status: Never smoker Alcohol intake: current Alcohol use details: 2-3 glasses wine monthly Substance use: never <Willy Armenta MD - Last Filed: 12/23/24 05:22> Exam Narrative: oxygen saturation 94% on room air. Respiratory rate of 22. Pressure of 108/7 <Willy Armenta MD - Last Filed: 12/23/24 05:22> Const: Orientation/consciousness: patient oriented x3 <Willy Armenta MD - Last Filed: 12/23/24 05:22> Limitations: no limitations <Willy Armenta MD - Last Filed: 12/23/24 05:22> HENMT: Head: normal to inspection <Willy Armenta MD - Last Filed: 12/23/24 05:22> Ears: external ears normal <Willy Armenta MD - Last Filed: 12/23/24 05:22> Face/Nose/Sinus: Normal external nose present <Willy Armenta MD - Last Filed: 12/23/24 05:22> Face and sinus: normal facial exam <Willy Armenta MD - Last Filed: 12/23/24 05:22> Mouth: Yes Normal oral and palatal mucosa present <Willy Armenta MD - Last Filed: 12/23/24 05:22> Throat: posterior oropharynx normal <Willy Armenta MD - Last Filed: 12/23/24 05:22> Eyes: Conjunctivae: conjunctivae normal <Willy Armenta MD - Last Filed: 12/23/24 05:22> Pupils: Equal, round and reactive pupils present <Willy Armenta MD - Last Filed: 12/23/24 05:22> EOM: EOMs intact bilaterally <Willy Armenta MD - Last Filed: 12/23/24 05:22> Direct Ophthalmoscopy: no photophobia <Willy Armenta MD - Last Filed: 12/23/24 05:22> Neck: Neck: normal visual inspection, no lymphadenopathy and no meningeal signs <Willy Armenta MD - Last Filed: 12/23/24 05:22> Chest: Chest palpation & inspection: normal inspection of the chest <Willy Armenta MD - Last Filed: 12/23/24 05:22> Resp: Effort & Inspection: normal respiratory effort <Willy Armenta MD - Last Filed: 12/23/24 05:22> Auscultation: diminished lung sounds <Willy Armenta MD - Last Filed: 12/23/24 05:22> Cardio: Rate: regular rate <Willy Armenta MD - Last Filed: 12/23/24 05:22> Rhythm: regular rhythm <Willy Armenta MD - Last Filed: 12/23/24 05:22> GI: GI Palp: Yes Soft to palpation <Willy Armenta MD - Last Filed: 12/23/24 05:22> Auscultation: normal bowel sounds <Willy Armenta MD - Last Filed: 12/23/24 05:22> Other: no tenderness/rigidity/rebound <Willy Armenta MD - Last Filed: 12/23/24 05:22> : General: Yes no CVA tenderness <Willy Armenta MD - Last Filed: 12/23/24 05:22> Back/Spine/Pelvis: Back: no CVA tenderness <Willy Armenta MD - Last Filed: 12/23/24 05:22> Skin: Other: generalized maculopapular rash <Willy Armenta MD - Last Filed: 12/23/24 05:22> Neuro: General: patient oriented x3, moves all extremities, no meningeal signs, no focal motor deficits and CN's II-XI intact bilaterally <Willy Armenta MD - Last Filed: 12/23/24 05:22> Cranial nerves: Yes Nystagmus not present <Willy Armenta MD - Last Filed: 12/23/24 05:22> Speech: normal speech <Willy Armenta MD - Last Filed: 12/23/24 05:22> Extrem: General: normal to inspection and no clubbing, cyanosis or edema <Willy Armenta MD - Last Filed: 12/23/24 05:22> Psych: Mental Status: mental status grossly normal <Willy Armenta MD - Last Filed: 12/23/24 05:22> Affect: normal affect <Willy Armenta MD - Last Filed: 12/23/24 05:22> Attitude: cooperative <Willy Armenta MD - Last Filed: 12/23/24 05:22> Course Course Emergency Course: anaphylaxis ( generalized maculopapular rash with shortness of breath) secondary to NSAIDs Generalized maculopapular rash which is itchy shortness of breath with oxygen saturation of 91-93%. ABG was noted to be 743/36/60/90 %. chest x-ray did not show any acute findings Gave Benadryl 25 and Solu-Medrol 125 IV. Subsequently give Pepcid 20 IV and epinephrine 0.5 IM. <Willy Armenta MD - Last Filed: 12/23/24 05:22> anaphylaxis ( generalized maculopapular rash with shortness of breath) secondary to NSAIDs Generalized maculopapular rash which is itchy shortness of breath with oxygen saturation of 91-93%. ABG was noted to be 743/36/60/90 %. chest x-ray did not show any acute findings Gave Benadryl 25 and Solu-Medrol 125 IV. Subsequently give Pepcid 20 IV and epinephrine 0.5 IM. Assumed care at 0700. 2nd LA was elevated above 4 but it was repeated and came back down. She continued to be asymptomatic. <Ephraim Pimentel DO - Last Filed: 12/23/24 09:25> Vital Signs Vital signs: Vital Signs Temperature 98.2 F 12/23/24 03:35 Pulse Rate 109 H 12/23/24 03:35 Respiratory Rate 22 H 12/23/24 03:35 Blood Pressure 108/71 12/23/24 03:35 Pulse Oximetry 94 12/23/24 03:35 Oxygen Delivery Room Air 12/23/24 03:35 Temperature 98.2 F 12/23/24 03:35 Pulse Rate 93 12/23/24 09:02 Respiratory Rate 19 12/23/24 09:02 Blood Pressure 136/76 12/23/24 09:02 Pulse Oximetry 94 12/23/24 09:02 Oxygen Delivery Room Air 12/23/24 08:31 <Willy Armenta MD - Last Filed: 12/23/24 05:22> Vital Signs Temperature 98.2 F 12/23/24 03:35 Pulse Rate 109 H 12/23/24 03:35 Respiratory Rate 22 H 12/23/24 03:35 Blood Pressure 108/71 12/23/24 03:35 Pulse Oximetry 94 12/23/24 03:35 Oxygen Delivery Room Air 12/23/24 03:35 Temperature 98.2 F 12/23/24 03:35 Pulse Rate 93 12/23/24 09:02 Respiratory Rate 19 12/23/24 09:02 Blood Pressure 136/76 12/23/24 09:02 Pulse Oximetry 94 12/23/24 09:02 Oxygen Delivery Room Air 12/23/24 08:31 <Ephraim Pimentel DO - Last Filed: 12/23/24 09:25> MDM - SOB/Dyspnea MDM Narrative Medical decision making narrative: anaphylaxis possibly secondary to NSAIDs <Willy Armenta MD - Last Filed: 12/23/24 05:22> Differential Diagnosis Differential diagnosis: Likely asthma with exacerbation <Willy Armenta MD - Last Filed: 12/23/24 05:22> Medical Records Attestation: I reviewed the patient's medical records. <Willy Armenta MD - Last Filed: 12/23/24 05:22> Lab Data Attestation: I reviewed the patient's lab results. <Willy Armenta MD - Last Filed: 12/23/24 05:22> Result diagrams: 12/23/24 04:28 12/23/24 04:28 <Willy Armenta MD - Last Filed: 12/23/24 05:22> Labs: Lab Results 12/23/24 12/23/24 12/23/24 Range/Units 04:28 06:47 08:48 WBC 9.3 (4.8-10.8) K/mm3 RBC 4.81 (4.20-5.40) M/mm3 Hgb 15.2 H (12.0-15.0) g/dL Hct 46.2 (35.0-49.0) % MCV 96.0 (78.0-102.0) fL MCH 31.6 H (27.0-31.0) pg MCHC 32.9 (32-36) g/dL RDW 12.5 (11.6-14.4) % Plt Count 362 (150-420) K/mm3 MPV 9.7 (9.2-11.8) fl Immature Gran % (Auto) 0.2 H (0.0-0.0) % Neut % (Auto) 38.1 L (50.0-70.0) % Lymph % (Auto) 55.0 H (18.0-42.0) % [place] % (Auto) 4.1 (2.0-11.0) % Eos % (Auto) 2.3 (1.0-6.0) % Baso % (Auto) 0.3 (0.0-1.0) % Lymph # (Auto) 5.09 H (1.10-4.50) K/mm3 [place] # (Auto) 0.38 (0.10-0.90) K/mm3 Eos # (Auto) 0.21 (0.02-0.50) K/mm3 Baso # (Auto) 0.03 (0.00-0.10) K/mm3 Abs Immat Gran (auto) 0.02 H (0.00-0.00) K/mm3 Absolute Neuts (auto) 3.53 (1.70-7.20) K/mm3 Absolute Nucleated RBC 0.00 (0.00-0.00) K/mm3 Nucleated RBC % 0.0 (0-0.0) % Sodium 142 (137-145) mmol/L Potassium 3.0 L (3.4-5.0) mmol/L Chloride 105 (98-107) mmol/L Carbon Dioxide 25 (22-30) mmol/L Anion Gap 12 (4-12) mmol/L BUN 15 (7-17) mg/dL Creatinine 0.97 (0.7-1.0) mg/dL Estim Creat Clear Calc 56 ml/min Estimated GFR 58 L (59 - ) Glucose 164 H (65-110) mg/dL Calculated Osmolality 298 H (285-295) mOsm/kg Lactic Acid 2.6 H 4.5 H* 2.5 H (0.4-2.0) mmol/L Calcium 9.7 (8.4-10.2) mg/dL Total Bilirubin 0.5 (0.2-1.3) mg/dL AST 26 (14-36) U/L ALT 24 (6-35) U/L Alkaline Phosphatase 101 (38-126) U/L Total Creatine Kinase 96 (30-135) U/L Troponin I < 0.012 (0.000-0.034) ng/mL NT-Pro-B Natriuret Pep 51 (19.9-100) pg/mL Total Protein 6.9 (6.3-8.2) g/dL Albumin 4.3 (3.5-5.1) g/dL Lipase 72 (23-300) U/L Urine Color Urine Appearance Urine pH Ur Specific [place] Urine Protein Urine Glucose (UA) Urine Ketones Ur Blood (Man) Urine Nitrate Urine Bilirubin Urine Urobilinogen Leukocyte Esterase Rfl 12/23/24 Range/Units 08:55 WBC (4.8-10.8) K/mm3 RBC (4.20-5.40) M/mm3 Hgb (12.0-15.0) g/dL Hct (35.0-49.0) % MCV (78.0-102.0) fL MCH (27.0-31.0) pg MCHC (32-36) g/dL RDW (11.6-14.4) % Plt Count (150-420) K/mm3 MPV (9.2-11.8) fl Immature Gran % (Auto) (0.0-0.0) % Neut % (Auto) (50.0-70.0) % Lymph % (Auto) (18.0-42.0) % [place] % (Auto) (2.0-11.0) % Eos % (Auto) (1.0-6.0) % Baso % (Auto) (0.0-1.0) % Lymph # (Auto) (1.10-4.50) K/mm3 [place] # (Auto) (0.10-0.90) K/mm3 Eos # (Auto) (0.02-0.50) K/mm3 Baso # (Auto) (0.00-0.10) K/mm3 Abs Immat Gran (auto) (0.00-0.00) K/mm3 Absolute Neuts (auto) (1.70-7.20) K/mm3 Absolute Nucleated RBC (0.00-0.00) K/mm3 Nucleated RBC % (0-0.0) % Sodium (137-145) mmol/L Potassium (3.4-5.0) mmol/L Chloride (98-107) mmol/L Carbon Dioxide (22-30) mmol/L Anion Gap (4-12) mmol/L BUN (7-17) mg/dL Creatinine (0.7-1.0) mg/dL Estim Creat Clear Calc ml/min Estimated GFR (59 - ) Glucose (65-110) mg/dL Calculated Osmolality (285-295) mOsm/kg Lactic Acid (0.4-2.0) mmol/L Calcium (8.4-10.2) mg/dL Total Bilirubin (0.2-1.3) mg/dL AST (14-36) U/L ALT (6-35) U/L Alkaline Phosphatase (38-126) U/L Total Creatine Kinase (30-135) U/L Troponin I (0.000-0.034) ng/mL NT-Pro-B Natriuret Pep (19.9-100) pg/mL Total Protein (6.3-8.2) g/dL Albumin (3.5-5.1) g/dL Lipase (23-300) U/L Urine Color Pending Urine Appearance Pending Urine pH Pending Ur Specific [place] Pending Urine Protein Pending Urine Glucose (UA) Pending Urine Ketones Pending Ur Blood (Man) Pending Urine Nitrate Pending Urine Bilirubin Pending Urine Urobilinogen Pending Leukocyte Esterase Rfl Pending <Willy Armenta MD - Last Filed: 12/23/24 05:22> Lab Results 12/23/24 12/23/24 12/23/24 Range/Units 04:28 06:47 08:48 WBC 9.3 (4.8-10.8) K/mm3 RBC 4.81 (4.20-5.40) M/mm3 Hgb 15.2 H (12.0-15.0) g/dL Hct 46.2 (35.0-49.0) % MCV 96.0 (78.0-102.0) fL MCH 31.6 H (27.0-31.0) pg MCHC 32.9 (32-36) g/dL RDW 12.5 (11.6-14.4) % Plt Count 362 (150-420) K/mm3 MPV 9.7 (9.2-11.8) fl Immature Gran % (Auto) 0.2 H (0.0-0.0) % Neut % (Auto) 38.1 L (50.0-70.0) % Lymph % (Auto) 55.0 H (18.0-42.0) % [place] % (Auto) 4.1 (2.0-11.0) % Eos % (Auto) 2.3 (1.0-6.0) % Baso % (Auto) 0.3 (0.0-1.0) % Lymph # (Auto) 5.09 H (1.10-4.50) K/mm3 [place] # (Auto) 0.38 (0.10-0.90) K/mm3 Eos # (Auto) 0.21 (0.02-0.50) K/mm3 Baso # (Auto) 0.03 (0.00-0.10) K/mm3 Abs Immat Gran (auto) 0.02 H (0.00-0.00) K/mm3 Absolute Neuts (auto) 3.53 (1.70-7.20) K/mm3 Absolute Nucleated RBC 0.00 (0.00-0.00) K/mm3 Nucleated RBC % 0.0 (0-0.0) % Sodium 142 (137-145) mmol/L Potassium 3.0 L (3.4-5.0) mmol/L Chloride 105 (98-107) mmol/L Carbon Dioxide 25 (22-30) mmol/L Anion Gap 12 (4-12) mmol/L BUN 15 (7-17) mg/dL Creatinine 0.97 (0.7-1.0) mg/dL Estim Creat Clear Calc 56 ml/min Estimated GFR 58 L (59 - ) Glucose 164 H (65-110) mg/dL Calculated Osmolality 298 H (285-295) mOsm/kg Lactic Acid 2.6 H 4.5 H* 2.5 H (0.4-2.0) mmol/L Calcium 9.7 (8.4-10.2) mg/dL Total Bilirubin 0.5 (0.2-1.3) mg/dL AST 26 (14-36) U/L ALT 24 (6-35) U/L Alkaline Phosphatase 101 (38-126) U/L Total Creatine Kinase 96 (30-135) U/L Troponin I < 0.012 (0.000-0.034) ng/mL NT-Pro-B Natriuret Pep 51 (19.9-100) pg/mL Total Protein 6.9 (6.3-8.2) g/dL Albumin 4.3 (3.5-5.1) g/dL Lipase 72 (23-300) U/L Urine Color Urine Appearance Urine pH Ur Specific [place] Urine Protein Urine Glucose (UA) Urine Ketones Ur Blood (Man) Urine Nitrate Urine Bilirubin Urine Urobilinogen Leukocyte Esterase Rfl 12/23/24 Range/Units 08:55 WBC (4.8-10.8) K/mm3 RBC (4.20-5.40) M/mm3 Hgb (12.0-15.0) g/dL Hct (35.0-49.0) % MCV (78.0-102.0) fL MCH (27.0-31.0) pg MCHC (32-36) g/dL RDW (11.6-14.4) % Plt Count (150-420) K/mm3 MPV (9.2-11.8) fl Immature Gran % (Auto) (0.0-0.0) % Neut % (Auto) (50.0-70.0) % Lymph % (Auto) (18.0-42.0) % [place] % (Auto) (2.0-11.0) % Eos % (Auto) (1.0-6.0) % Baso % (Auto) (0.0-1.0) % Lymph # (Auto) (1.10-4.50) K/mm3 [place] # (Auto) (0.10-0.90) K/mm3 Eos # (Auto) (0.02-0.50) K/mm3 Baso # (Auto) (0.00-0.10) K/mm3 Abs Immat Gran (auto) (0.00-0.00) K/mm3 Absolute Neuts (auto) (1.70-7.20) K/mm3 Absolute Nucleated RBC (0.00-0.00) K/mm3 Nucleated RBC % (0-0.0) % Sodium (137-145) mmol/L Potassium (3.4-5.0) mmol/L Chloride (98-107) mmol/L Carbon Dioxide (22-30) mmol/L Anion Gap (4-12) mmol/L BUN (7-17) mg/dL Creatinine (0.7-1.0) mg/dL Estim Creat Clear Calc ml/min Estimated GFR (59 - ) Glucose (65-110) mg/dL Calculated Osmolality (285-295) mOsm/kg Lactic Acid (0.4-2.0) mmol/L Calcium (8.4-10.2) mg/dL Total Bilirubin (0.2-1.3) mg/dL AST (14-36) U/L ALT (6-35) U/L Alkaline Phosphatase (38-126) U/L Total Creatine Kinase (30-135) U/L Troponin I (0.000-0.034) ng/mL NT-Pro-B Natriuret Pep (19.9-100) pg/mL Total Protein (6.3-8.2) g/dL Albumin (3.5-5.1) g/dL Lipase (23-300) U/L Urine Color Pending Urine Appearance Pending Urine pH Pending Ur Specific [place] Pending Urine Protein Pending Urine Glucose (UA) Pending Urine Ketones Pending Ur Blood (Man) Pending Urine Nitrate Pending Urine Bilirubin Pending Urine Urobilinogen Pending Leukocyte Esterase Rfl Pending <Ephraim Pimentel DO - Last Filed: 12/23/24 09:25> ABG Data ABG results: 12/23/24 03:43 Puncture Site Left radial ABG pH 7.43 ABG pCO2 36.0 ABG pO2 59.6 L ABG HCO3 23.2 ABG O2 Saturation 91.5 L ABG Base Excess -0.6 L Oxyhemoglobin 91.0 L O2 Delivery Device Room air O2 Liters/Min 0.0 <Willy Armenta MD - Last Filed: 12/23/24 05:22> 12/23/24 03:43 Puncture Site Left radial ABG pH 7.43 ABG pCO2 36.0 ABG pO2 59.6 L ABG HCO3 23.2 ABG O2 Saturation 91.5 L ABG Base Excess -0.6 L Oxyhemoglobin 91.0 L O2 Delivery Device Room air O2 Liters/Min 0.0 <Ephraim Pimentel DO - Last Filed: 12/23/24 09:25> ECG Data EKG #1: ECG completion date: 12/23/24 <Willy Armenta MD - Last Filed: 12/23/24 05:22> ECG completion time: 04:39 <Willy Armenta MD - Last Filed: 12/23/24 05:22> Interpretation: normal sinus rhythm. Normal axis. No ST elevation noted. <Willy Armenta MD - Last Filed: 12/23/24 05:22> Discharge Plan Discharge Clinical Impression: Anaphylaxis Qualifiers: Encounter type: initial encounter Qualified Code(s): T78.2XXA - Anaphylactic shock, unspecified, initial encounter <Willy Armenta MD - Last Filed: 12/23/24 05:22> Patient Disposition: Home <Willy Armenta MD - Last Filed: 12/23/24 05:22> Condition: Stable <Willy Armenta MD - Last Filed: 12/23/24 05:22> Instructions: Anaphylaxis (ED) <Willy Armenta MD - Last Filed: 12/23/24 05:22> Patient Language: Swedish <Willy Armenta MD - Last Filed: 12/23/24 05:22> Prescriptions: New epinephrine [Auvi-Q] 0.3 mg/0.3 mL auto-injector 0.3 mg IM Q5-15M PRN (Reason: anaphylaxis) Qty: 2 0RF Rx Instructions: do not exceed 3 doses per episode No Action aspirin [Adult Low Dose Aspirin] 81 mg tablet,delayed release (DR/EC) 81 mg PO DAILY Qty: 7 0RF lisinopril 10 mg tablet See Rx Instructions .ROUTE .COMPLEX Qty: 90 2RF Dose Instruction: TAKE 1 TABLET DAILY FOR 1 WEEK, THEN INCREASE TO 2 TABLETS DAILY Rx Instructions: TAKE 1 TABLET DAILY cholecalciferol (vitamin D3) 1,250 mcg (50,000 unit) capsule 50,000 unit PO .COMPLEX Qty: 14 3RF Rx Instructions: 50,000 units orally Take once weekly alternating weeks.; <Willy Armenta MD - Last Filed: 12/23/24 05:22> Follow-up/Referrals: Leif,Jeffery Fagan [Non-Staff] <Willy Armenta MD - Last Filed: 12/23/24 05:22>
--- NOTE | 2024-12-23 03:43 | ECG_ITS ---
Test Date: 2024-12-23 04:17:03 Measurements Intervals [place] Rate: 79 P: 52 MD: 161 QRS: 45 QRSD: 91 T: 63 QT: 396 QTc: 456 Interpretive Statements SINUS RHYTHM No previous ECG available for comparison Electronically Signed On 12-23-2024 16:03:41 CDT by Bear Soto M.D.
--- NOTE | 2024-12-23 04:19 | PC.NURSE ---
LAB CONTINUES TO BE AT THE BEDSIDE. EKG BEING COMPLETED BY MILIND SNYDER AND BRIDGETTE. ICE CHIP WAS GIVEN FOR DRY MOUTH
[2024-12-23 04:23] LABS: HCO3 ABG 23.2 mmol/L (23-29); Oxygen Saturation ABG 91.5 % (95-97); PCO2 ABG 36.0 mmHg (35-45); PO2 ABG 59.6 mmHg (80-90)
[2024-12-23 04:24] LABS: Site Drawn LEFT RADIAL
[2024-12-23 04:25] LABS: Liters per Minute 0.0 LPM; Modified Allen's Test Pass
--- NOTE | 2024-12-23 04:26 | PC.NURSE ---
PATIENT REPORTS THAT HER MOUTH AND THROAT FEEL BETTER AFTER HAVING ICE CHIP. BREATHING IS BETTER ALSO PER PATIENT. CONTINUES TO HAVE REDNESS AND HIVES TO ARMS AND LEGS
--- OUTSIDE RECORDS SUMMARY | 2024-12-23 04:28 | XMS_ITS | Clinical Summary ---
Author Organization [facility] Address [address] [place] [address] Care Team Providers Care Motorcycle Repairer Name Role Phone David Philippe PA Primary Care Provider [phone] Allergies No known active allergies Medications Vitamin [...] Sex Assigned at Female 06/15/2024 5:22 AM RAILROAD PASSENGER AGENT Legal Sex Female 10:51 AM RAILROAD PASSENGER AGENT Gender Identity Not on file Sexual Orientation Not on file Last Filed Vital Signs Vital Sign Reading Time Taken Comments Blood Pressure 130/85 06/15/2024 1:15 PM RAILROAD PASSENGER AGENT Pulse 64 06/15/2024 1:15 PM RAILROAD PASSENGER AGENT Temperature 35.9 C (96.6 F) 06/15/2024 1:15 PM RAILROAD PASSENGER AGENT Respiratory Rate 16 06/15/2024 1:15 PM RAILROAD PASSENGER AGENT Oxygen Saturation 98% 06/15/2024 1:15 PM RAILROAD PASSENGER AGENT Inhaled Oxygen Concentration - - Weight 89.2 kg (196 lb 10.4 oz) 06/15/2024 6:30 AM RAILROAD PASSENGER AGENT Height 160 cm (5' 3) 06/15/2024 6:30 AM RAILROAD PASSENGER AGENT Body Mass Index 34.84 06/15/2024 6:30 AM RAILROAD PASSENGER AGENT Plan of Treatment Health Maintenance Due Date [...] this topic Medical Devices Implanted Type Area Linter Saw Sharpener Device Identifier Shelf Expiration Date Model / Serial / Lot 3.8 Counter Sink Implanted:Qty : 1 on 06/15/2024 by See Wetzel DPM at [facility] Screw Left: Foot [employer] [id number] / / 3.0x16 Mm Asnis Screw Implanted:Qty : 1 on 06/15/2024 by See Wetzel DPM at [facility] Screw Left: Foot [employer] [id number] / / Toetac Xpress Implanted:Qty : 2 on 06/15/2024 by See Wetzel DPM at [facility] Left: Foot [employer] [id number] 02/14/2027 [id number] / / [id number] Explanted Type Area Linter Saw Sharpener Device Identifier Shelf Expiration Date Model / Serial / Lot 1.2 K-Wire Explanted:Qty: 1 on 06/15/2024 by See Wetzel DPM at [facility] Wire Left: Foot [employer] [id number] / / Insurance [facility] [place] [id number] Care Teams Motorcycle Repairer Relationship Specialty Start Date End Date David Philippe FNP [address] [place] [phone] PCP - General Nurse Practitioner Family 06/08/24
--- OUTSIDE RECORDS SUMMARY | 2024-12-23 04:29 | XMS_ITS | Clinical Summary ---
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 Essential hypertension [...] on file Legal Sex Female 2:55 AM NATIONAL FACILITIES MANAGER Gender Identity Not on file Sexual Orientation [...] Comments Blood Pressure 156/90 04/01/2023 2:25 PM NATIONAL FACILITIES MANAGER Pulse 67 04/01/2023 2:25 PM NATIONAL FACILITIES MANAGER Temperature 36.3 C (97.3 F) 04/01/2023 2:10 PM NATIONAL FACILITIES MANAGER Respiratory Rate 25 04/01/2023 2:25 PM NATIONAL FACILITIES MANAGER Oxygen Saturation 100% 04/01/2023 2:25 PM NATIONAL FACILITIES MANAGER Inhaled Oxygen Concentration - - Weight 83.9 kg (185 lb) 04/01/2023 11:42 AM NATIONAL FACILITIES MANAGER Height 160 cm (5' 3) 04/01/2023 11:42 AM NATIONAL FACILITIES MANAGER Body Mass Index 32.77 04/01/2023 11:42 AM NATIONAL FACILITIES MANAGER Plan of Treatment Health Maintenance Due Date [...] this topic Medical Devices Implanted Type Area Grain Unloader Machine Device Identifier Shelf Expiration Date Model / Serial / Lot [email or web address] Julianne [id number] Solyx Advantage 9cm Incision Sling Delivery Device Mesh - [id number] Implanted:Qty: 1 on 08/28/2020 by Yamileth Gil MD at [facility] N/A: Urethra [place] [employer] Julianne 12/05/2022 [id number] / / [id number] Description:Suburethral impl ant Procedures Procedure Name Priority Date/Time Associated Diagnosis Comments COLONOSCOPY 04/01/2023 1:16 PM NATIONAL FACILITIES MANAGER from Last 3 Months or Most Recently Relevant to Health Maintenance Results * COLONOSCOPY (04/01/2023 1:16 PM NATIONAL FACILITIES MANAGER) Anatomical Region Laterality Modality Other Narrative Procedure Note Marek Mack MD - 04/01/2023 1:16 PM CST ENDOSCOPY LAB Patient Name: Lulu Torres Procedure Date: 04/01/2023 1:16 PM Date of : 1960 Admit Type: Outpatient Age: 62 Gender: Female Attending MD: Marek Mack M.D. Room: [facility] ENDOSCOPY ROOM 02 Note Status: Finalized [...] The scope was passed under direct vision.The [id number] was introduced through the anusand advanced to [...] following this procedure please call my office [phone]). After hours and eveningsplease call [phone] and speak to the GI fellow oncall. [...] procedure, including non-stern portions. Electronically signed by Mraek Mack MD Marek Mack M.D. 04/01/2023 2:01:57 PM Number of Addenda: 0 Note Initiated On: 04/01/2023 1:16 PM Marek Mack MD ENDOSCOPY PROCED URES Final Result from Last 3 Months or Most Recently Relevant to Health Maintenance Insurance [facility]PP[facility] Address: [facility] [address] [place] [address] [employer] [address] [facility]/PPO Address: [address] [place] [address] [facility] Address: [address] [address] Advance Directives For more information, please contact: [phone] * Full Code (Latest Code Status on File) Date Activated Date Inactivated Comments 03/02/2022 8:33 AM 03/02/2022 3:05 PM * Full Code Date Activated Date Inactivated Comments 08/28/2020 1:49 PM 08/28/2020 7:42 PM * Full Code Date Activated Date Inactivated Comments 03/03/2020 9:28 AM 03/03/2020 3:41 PM Care Teams Jewel Lathe Operator Relationship Specialty Start Date End Date Aura Nelson MD [address] [place] [address] PCP - General Internal Medicine 05/31/19
[2024-12-23] MEDS: FAMOTIDINE 20 MG/2 ML VIAL IV PUSH (04:38)
[2024-12-23] MEDS: EPINEPHrine HCL INJ 1 MG/ML AMPUL 0.5 MG IM (04:46)
[2024-12-23 04:54] LABS: Hematocrit 46.2 % (35.0-49.0); Hemoglobin 15.2 g/dL (12.0-15.0); Immature Granulocyte Percent A 0.2 % (0.0-0.0); Lymphocytes Absolute Auto 5.09 K/mm3 (1.10-4.50); Mean Corpuscular HGB Conc 32.9 g/dL (32-36); Mean Corpuscular Hemoglobin 31.6 pg (27.0-31.0); Mean Corpuscular Volume 96.0 fL (78.0-102.0); Nucleated Red Blood Cells Absolute Auto 0.00 K/mm3 (0.00-0.00); Nucleated Red Blood Cells Perc 0.0 % (0-0.0); Platelet Count Result 362 K/mm3 (150-420); Red Blood Count 4.81 M/mm3 (4.20-5.40); White Blood Count 9.3 K/mm3 (4.8-10.8)
[2024-12-23 04:59] LABS: Alanine Aminotransferase 24 U/L (6-35); Albumin Level 4.3 g/dL (3.5-5.1); Alkaline Phosphatase 101 U/L (38-126); Anion Gap 12 mmol/L (4-12); Aspartate Amino Transferase 26 U/L (14-36); Bilirubin,Total 0.5 mg/dL (0.2-1.3); Blood Urea Nitrogen 15 mg/dL (7-17); Calcium 9.7 mg/dL (8.4-10.2); Carbon Dioxide 25 mmol/L (22-30); Chloride 105 mmol/L (98-107); Creatine Kinase 96 U/L (30-135); Estimated CRCL calculation 56 ml/min; Estimated Glomerular Filt Rate 58; Glucose 164 mg/dL (65-110); Osmolality Calculated 298 mOsm/kg (285-295); Potassium 3.0 mmol/L (3.4-5.0); Sodium 142 mmol/L (137-145); Total Protein 6.9 g/dL (6.3-8.2)
--- NOTE | 2024-12-23 05:01 | PC.NURSE ---
PATIENT IS RESTING ON STRETCHER. CURRENTLY ON ANIMAL SITTER. RESTING WITH HER EYES CLOSED. AT HER SIDE. CALL LIGHT IN REACH. CURTAIN LEFT OPEN FOR ENHANCED MONITORING.
[2024-12-23] MEDS: LACTATED RINGERS 1,000 ML 999 ML IV CONT (05:13)
[2024-12-23 05:16] LABS: NT Pro B Type Natriuretic Pept 51 pg/mL (19.9-100)
[2024-12-23 05:24] LABS: Lipase 72 U/L (23-300)
[2024-12-23 05:36] LABS: Troponin I < 0.012 ng/mL (0.000-0.034)
--- NOTE | 2024-12-23 06:00 | PC.NURSE ---
PATIENT IS CURRENTLY RESTING ON STRETCHER WITH AT HER SIDE. AWARE THAT ER PROVIDER WANTS TO WATCH HER FOR A TOTAL OF 6 HOURS. VERBALIZED UNDERSTANDING. REDNESS AND HIVES HAVE GONE DOWN AT THIS TIME. STATES THAT HER BREATHING IS BETTER THAN ON ARRIVAL. DENIES ANY NEEDS. CALL LIGHT IN REACH
--- NOTE | 2024-12-23 06:43 | PC.NURSE ---
[facility] AT THE BEDSIDE
[2024-12-23] MEDS: SODIUM CHLORIDE 0.9% IV 1,000 ML 999 ML IV CONT (07:25)
[2024-12-23 09:09] LABS: Add Urine Microscopic? YES; Appearance Urine Clear (Clear); Glucose Urine UA Trace (Negative); Leukocyte Esterase Ur Trace LEU/UL (Negative); Nitrate Urine Negative (Negative); Specific Grav Ur 1.010 (1.010-1.020)
== END 2024-12-23 09:18 | disposition home or self-care (01) ==
PROVIDERS: Internal Medicine Critical Care Medicine; Emergency Provider Family Medicine; PCP Nurse Practitioner Family
DX: T78.2XXA Anaphylactic shock, unspecified, initial encounter (principal); I10 Essential (primary) hypertension
CPT/HCPCS: 36415; 36600; 71045; 80053; 81001; 82550; 82805; 83605; 83690; 83880; 84484; 85025; 93005; 96361; 96372; 96374; 96375; 99284; J0166; J1200; J2919; J7030; J7120

== ENCOUNTER 2025-01-15 13:21 | Outpatient (CLI) | payer OTHER, SELFPAY ==
--- OUTSIDE RECORDS SUMMARY | 2024-12-24 11:10 | XMS_ITS ---
Author Organization [facility] Address [address] [place], [place] [address] Care Team Providers Care Nurse Obgyn Name Role Phone TIGRE JORGE ALBERTO Unavailable [phone] Ephraim Pimentel Unavailable Unavailable REASON FOR VISIT The patient tolerated the celebrex well. The toe sleeves also helped with her toe swelling. The foot fits into cowboy boots, so she is happy Medications Medication SIG (Take, Route, Frequency, Duration) Notes Start Date End Date Status Multivitamin - 1 tablet Orally Once a day Active Vitamin B 12 100 MCG as directed Orally Active Celecoxib 200 MG 1 capsule as needed Orally Once a day; Duration: 30 days Active HYDROcodone-Acetaminophen 5-325 MG 1 tablet as needed Orally every 4-6 hrs 06/14/2024 Active Vitamin D 50 MCG (1999 [place]) 1 tablet Oral ly Once a day Active Encounters Encounter Location Date Provider Diagnosis [facility] [address] [place], [place] [id number] 12/24/2024 JORGE ALBERTO LANDEROS Hallux valgus (acquired), left foot M20.12 ; Other hammer toe(s) (acquired), left foot M20.42 and Encounter for other specified surgical aftercare Z48.89 Assessments Encounter Date Diagnosis (ICD Code) Assessment Notes Treatment Notes Treatment Clinical Notes Section Notes 12/24/2024 Hallux valgus (acquired), left foot (ICD-10 - M20.12) Return to normal shoes. Gradual return to activities as tolerated. Patient instructed to contact the office if any issues arise. 12/24/2024 Other hammer toe(s) (acquired), left foot (ICD-10 - M20.42) 12/24/2024 Encounter for other specified surgical aftercare (ICD-10 - Z48.89) Plan Of Treatment Treatment Notes Assessment Notes Hallux valgus (acquired), left foot Return to normal shoes. Gradual return to activities as tolerated. Patient instructed to contact the office if any issues arise. Next Appt Details Follow Up: prn, Reason: Progress Notes * CELINA LEEHDOB: [birth year] (64 yo F)Acc No.[id number]:12/24/2024 Patient: GRACIE LAZAR Provider: Thierry Landeros DPM :1960 A ge:64 Y S ex:Female Date:12/24/2024 Address:[facility] [place] [address] Subjective: * Chief Complaints: * 1 . The patient tolerated the celebrex well. The toe sleeves also helped with her toe swelling. The foot fits into cowboy boots, so she is happy. * HPI: H PI: Follow Up Visit P ally presents for follow up visit for left foot post op., Patient states their problem is, improving., MA: cecilio. * ROS: G eneral / [...] as needed Orally Once a day , Medication List reviewed and reconciled with [...] refill: l ess than 3 seconds. Edema: N o edema, bilateral. N eurologic: Gross sensation G ross sensation [...] 9024 POSTOP FOLLOW-UP VISIT * Follow Up: p rn * Billing Information: * Visit Code: * Procedure Codes: 04090 POSTOP FOLLOW-UP VISIT. * Electronic signature of JORGE ALBEROT LANDEROS DPM on 01/15/2025 at 01:35 PM CDT Sign off status: Pending * Provider: Thierry Landeros DPM Date: 0 12/24/2024 Generated for Edvin crystal/Silvia/Michela on: 0 01/15/2025 01:35 PM CDT History and Physical Notes * HPI (History of Present Illness) Category Sub-Category Detail Notes Category Not es HPI Follow Up Visit Patient presents for follow up visit for left foot post op., Patient states their problem is, improving., MA: mf Examination Category Sub-Category Detail Notes Category Not es Dermatologic Skin findings: Skin is warm, dr y, supple with no breaks in the skin Neurologic Gross sensation Gross sensation is intact to light touch Vascular Dorsalis pedis pulse: 2/4, bilateral Edema: No edema, bilateral Capillary refill: less than 3 seconds Posterior tibial pulse: 2/4, bilateral Musculoskeletal Muscle Strength Muscle strength is 5/5 in regards to dorsiflexion, plantarflexion, inversion, and eversion in bilateral lower extremities Constitutional Constitutional The patient is a wake, alert, well developed, well groomed and well nourished
--- NOTE | ~2025-01-15 | MM_ITS ---
EXAMINATION: MM screening [facility] BI w kaylene HISTORY: Screening TECHNIQUE: Craniocaudal and mediolateral oblique 3-D tomosynthesis images were obtained and synthetic 2-D images were generated. CAD analysis was submitted and interpreted. COMPARISON: Comparison to multiple prior studies sequentially, with oldest reviewed study dated 09/19/2017. BREAST PARENCHYMAL COMPOSITION: Dense: The breasts are heterogeneously dense, which may obscure small masses FINDINGS: Stable to decreased size of bilateral breast masses compared with prior studies, consistent with previously documented cyst on ultrasound dated 01/09/2019. There is no evidence of suspicious mass, calcification, or architectural distortion to suggest malignancy in either breast. There has been no suspicious interval change. IMPRESSION: 1. No mammographic evidence of malignancy. 2. Recommend routine screening mammography in one year. BI-RADS Category 2: Benign finding(s). Reviewed, dictated and finalized at location B.
--- OUTSIDE RECORDS SUMMARY | 2025-01-15 13:35 | XMS_ITS | Patient Health Record ---
Author Organization [facility] Address [address] [place], [place] [id number] Care Team Providers Care Roll Form Operator Name Role Phone JORGE ALBERTO LANDEROS Unavailable [phone] Ephraim Pimentel Unavailable Unavailable Allergies No Known [...] hrs 06/14/2024 Active Vitamin D 50 MCG (1999) 1 tablet Oral ly Once a day Active Vital Signs Height-cm 160.02 cm 07/23/2024 Height 63 in 07/23/2024 Encounters Encounter Location Date Provider Diagnosis [address] [id number] 06/15/2024 JORGE ALBERTO SNOOK [facility] [place] [address] [place], [place] [id number] 12/24/2024 JORGE ALBERTO SNOOK Hallux valgus (acquired), left foot M20.12 ; Other hammer toe(s) (acquired), left foot M20.42 and Encounter for other specified surgical aftercare Z48.89 [facility] [address] [place], [place] [id number] 05/03/2024 JORGE ALBERTO SNOOK Hallux valgus (acquired), left foot M20.12 ; Other hammer toe(s) (acquired), left foot M20.42 and Left foot pain M79.[address] [id number] 06/21/2024 JORGE ALBERTO SNOOK Hallux valgus (acquired), left foot M20.12 ; Other hammer toe(s) (acquired), left foot M20.42 and Encounter for other specified surgical aftercare Z48.[address] [id number] 07/05/2024 JORGE ALBERTO SNOOK Hallux valgus (acquired), left foot M20.12 ; Other hammer toe(s) (acquired), left foot M20.42 and Encounter for other specified surgical aftercare Z48.89 [facility] [place] [address] [address] [place], [place] [id number] 07/23/2024 JORGE ALBERTO SNOOK Hallux valgus (acquired), left foot M20.12 ; Other hammer toe(s) (acquired), left foot M20.42 ; Encounter for other specified surgical aftercare Z48.89 and Left foot pain M79.672 [facility] [place] [address] [address] [place] [id number] 08/20/2024 JORGE ALBERTO SNOOK Hallux valgus (acquired), left foot M20.12 ; Other hammer toe(s) (acquired), left foot M20.42 ; Encounter for other specified surgical aftercare Z48.89 and Left foot pain M79.672 [facility] [place] [address] [address] [id number] 06/14/2024 JORGE ALBERTO SNOOK Assessments Encounter Date [...] (acquired), left foot (ICD-10 - M20.42) 12/24/2024 Hallux valgus (acquired), left foot (ICD-10 - M20.12) Return to normal shoes. Gradual return to activities as tolerated. Patient instructed to contact the office if any issues arise. 12/24/2024 Other hammer toe(s) (acquired), left foot (ICD-10 - M20.42) 12/24/2024 Encounter for other specified surgical aftercare (ICD-10 - Z48.89) 07/05/2024 Encounter for other specified surgical aftercare [...] bearing weight. Decrease activity. Plan Of Treatment No Information Insurance Providers Payer Name Payer Address Payer Phone Subscriber Number Group Number Insured Name Patient Relationship to Insured Coverage Start Date Coverage End Date [address] [address] [place], [place] [id number] GRACIE LEE Self - patient is the insured
--- OUTSIDE RECORDS SUMMARY | 2025-01-15 13:35 | XMS_ITS | Clinical Summary ---
Author Organization [facility] Address [address] [place] [address] Care Team Providers Care Heater Operator Name Role Phone David Philippe PA Primary Care Provider Allergies No known active allergies Medications Vitamin [...] Sex Assigned at Female 06/15/2024 5:22 AM FIRE DEPARTMENT BATTALION CHIEF Legal Sex Female 10:51 AM FIRE DEPARTMENT BATTALION CHIEF Gender Identity Not on file Sexual Orientation Not on file Last Filed Vital Signs Vital Sign Reading Time Taken Comments Blood Pressure 130/85 06/15/2024 1:15 PM FIRE DEPARTMENT BATTALION CHIEF Pulse 64 06/15/2024 1:15 PM FIRE DEPARTMENT BATTALION CHIEF Temperature 35.9 C (96.6 F) 06/15/2024 1:15 PM FIRE DEPARTMENT BATTALION CHIEF Respiratory Rate 16 06/15/2024 1:15 PM FIRE DEPARTMENT BATTALION CHIEF Oxygen Saturation 98% 06/15/2024 1:15 PM FIRE DEPARTMENT BATTALION CHIEF Inhaled Oxygen Concentration - - Weight 89.2 kg (196 lb 10.4 oz) 06/15/2024 6:30 AM FIRE DEPARTMENT BATTALION CHIEF Height 160 cm (5' 3) 06/15/2024 6:30 AM FIRE DEPARTMENT BATTALION CHIEF Body Mass Index 34.84 06/15/2024 6:30 AM FIRE DEPARTMENT BATTALION CHIEF Plan of Treatment Health Maintenance Due Date Last Done Comments Colorectal Cancer Screening Colonoscopy (10 Years) 1960 Annual Physical 1965 Hepatitis C 1980 Mammogram Screening 2002 Pneumococcal Vaccine: 50+ Years (1 of 1 - PCV) 2012 Zoster Vaccines (1 of 2) 2012 COVID-19 Vaccine (2 - 2024-05 6 season) 2024 11/05/2020 DTaP, Tdap and Td Vaccines ( [...] this topic Medical Devices Implanted Type Area Paper Deliverer Device Identifier Shelf Expiration Date Model / Serial / Lot 3.8 Counter Sink Implanted:Qty : 1 on 06/15/2024 by See Wetzel DPM at [facility] Screw Left: Foot [employer] [id number] / / 3.0x16 Mm Asnis Screw Implanted:Qty : 1 on 06/15/2024 by See Wetzel DPM at [facility] Screw Left: Foot [employer] [id number] / / Toetac Xpress Implanted:Qty : 2 on 06/15/2024 by See Wetzel DPM at [facility] Left: Foot [employer] [id number] 02/14/2027 [id number] / / [id number] Explanted Type Area Paper Deliverer Device Identifier Shelf Expiration Date Model / Serial / Lot 1.2 K-Wire Explanted:Qty: 1 on 06/15/2024 by See Wetzel DPM at [facility] Wire Left: Foot [employer] [id number] / / Insurance [facility] [place] [id number] Care Teams Heater Operator Relationship Specialty Start Date End Date David Philippe FNP [address] [place] [phone] PCP - General Nurse Practitioner Family 06/08/24
--- OUTSIDE RECORDS SUMMARY | 2025-01-15 13:35 | XMS_ITS | Clinical Summary ---
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 Essential hypertension [...] on file Legal Sex Female 2:55 AM ASPHALT PAVING SUPERVISOR Gender Identity Not on file Sexual [...] Comments Blood Pressure 156/90 04/01/2023 2:25 PM ASPHALT PAVING SUPERVISOR Pulse 67 04/01/2023 2:25 PM ASPHALT PAVING SUPERVISOR Temperature 36.3 C (97.3 F) 04/01/2023 2:10 PM ASPHALT PAVING SUPERVISOR Respiratory Rate 25 04/01/2023 2:25 PM ASPHALT PAVING SUPERVISOR Oxygen Saturation 100% 04/01/2023 2:25 PM ASPHALT PAVING SUPERVISOR Inhaled Oxygen Concentration - - Weight 83.9 kg (185 lb) 04/01/2023 11:42 AM ASPHALT PAVING SUPERVISOR Height 160 cm (5' 3) 04/01/2023 11:42 AM ASPHALT PAVING SUPERVISOR Body Mass Index 32.77 04/01/2023 11:42 AM ASPHALT PAVING SUPERVISOR Plan of Treatment Health Maintenance Due [...] this topic Medical Devices Implanted Type Area Health Aid Device Identifier Shelf Expiration Date Model / Serial / Lot [employer] Julianne [id number] Solyx Advantage 9cm Incision Sling Delivery Device Mesh - [id number] Implanted:Qty: 1 on 08/28/2020 by Yamileth Gil MD at [facility] N/A: Urethra [place] [employer] Julianne 12/05/2022 [id number] / / [id number] Description:Suburethral impl ant Procedures Procedure Name Priority Date/Time Associated Diagnosis Comments COLONOSCOPY 04/01/2023 1:16 PM ASPHALT PAVING SUPERVISOR from Last 3 Months or Most Recently Relevant to Health Maintenance Results * COLONOSCOPY (04/01/2023 1:16 PM ASPHALT PAVING SUPERVISOR) Anatomical Region Laterality Modality Other Narrative Procedure Note Marek Mack MD - 04/01/2023 1:16 PM CST ENDOSCOPY LAB Patient Name: Lulu Torres Procedure Date: 04/01/2023 1:16 PM Date of : 1960 Admit Type: Outpatient Age: 62 Gender: Female Attending MD: Marek Mack M.D. Room: [facility] ENDOSCOPY ROOM 02 Note Status: Finalized Procedure: [...] The scope was passed under direct vision.The [id number] was introduced through the anusand advanced to [...] following this procedure please call my office [phone] After hours and eveningsplease call [phone] and speak to the GI fellow oncall. [...] Most Recently Relevant to Health Maintenance Insurance [facility] Address: [facility] [address] [place] [address] [employer] [address] [facility] H[facility]/PPO Address: [address] [place] [address] [facility] H[facility] Address: [address] [address] Advance Directives For more information, please contact: [phone] * Full Code (Latest Code Status on File) Date Activated Date Inactivated Comments 03/02/2022 8:33 AM 03/02/2022 3:05 PM * Full Code Date Activated Date Inactivated Comments 08/28/2020 1:49 PM 08/28/2020 7:42 PM * Full Code Date Activated Date Inactivated Comments 03/03/2020 9:28 AM 03/03/2020 3:41 PM Care Teams Twister In Relationship Specialty Start Date End Date Aura Nelson MD [address] [place] [address] PCP - General Internal Medicine 05/31/19
[2025-01-16 07:09] LABS: Measles Antibodies, IgG 110.0 AU/mL (Immune >16.4)
== END 2025-01-15 13:22 | disposition home or self-care (01) ==
PROVIDERS: PCP Nurse Practitioner Family; Visit Provider Nurse Practitioner Family
DX: Z12.31 Encounter for screening mammogram for malignant neoplasm of breast (principal); Z01.84 Encounter for antibody response examination
CPT/HCPCS: 77063; 77067; 86735; 86765